=== PATIENT | male | born 1940 | race Caucasian/White ===

== ENCOUNTER 2016-08-15 13:42 | Emergency (ER) | payer MEDICARE ==
[~2016-08-15] VITALS: Ht 182.9 cm; Wt 63.5 kg
[2016-08-15] MEDS ORDERED: IPRATRPIUM/ALBUTEROL 0.5/2.5MG 3 ML NEBU. NEB ONE (14:00)
--- NOTE | 2016-08-15 14:23 | RAD ---
Indication chest pain. 2 AP views of the chest were obtained. No prior imaging is available. There are background changes compatible with emphysema and/or fibrosis. Heart size is normal. There is no gross congestive heart failure. A consolidated pneumonia is not seen. Significant pleural fluid is not present and there is no pneumothorax. IMPRESSION: Probable chronic changes. No acute finding seen
[2016-08-15 14:26] LABS: BASO # 0.1 x10^3/uL (0.0-0.2); BASO % 1 % (0-3); EOS % 1 % (0-3); HEMATOCRIT 45.4 % (36.0-47.0); HEMOGLOBIN 15.4 g/dL (12.0-15.5); LYMPH # 0.8 x10^3/uL (1.0-4.8); LYMPH % 12 % (24-48); MEAN CORPUSCULAR HEMOGLOBIN 30 pg (25-35); MEAN CORPUSCULAR HGB CONC 34 g/dL (31-37); MEAN CORPUSCULAR VOLUME 88 fL (79-100); MONO % 4 % (0-9); NEUT % 82 % (31-73); PLATELET COUNT 194 x10^3/uL (140-400); RED BLOOD COUNT 5.19 x10^6/uL (3.50-5.40); RED CELL DISTRIBUTION WIDTH 14.6 % (11.5-14.5); WHITE BLOOD COUNT 6.6 x10^3/uL (4.0-11.0)
[2016-08-15 14:49] LABS: CALCIUM 9.3 mg/dL (8.5-10.1); CREATININE 0.9 mg/dL (0.7-1.3); GFR 82.5; POTASSIUM 4.3 mmol/L (3.5-5.1)
[2016-08-15] MEDS ORDERED: PROAIR HFA8.5 GM INH (14:49)
[2016-08-15] MEDS ORDERED: PRED50TA PO (14:49)
--- NOTE | 2016-08-15 14:49 | PHYS DOC ---
Past Medical History Past Medical History: COPD Past Surgical History: No Surgical History Alcohol Use: None Adult General Chief Complaint Chief Complaint: SHORTNESS OF BREATH HPI HPI 75-year-old male (patient was inaccurately labeled a female in the medical record. This is wrong. The patient is a male.) Presenting to the emergency department today with shortness of breath. His shortness of breath is been present for approximately 3 weeks. It is worse with exertion and improved with rest. He denies any pain. He denies fevers cough or chills. He has a history of COPD. Location lungs. Duration intermittent. Review of systems is negative for chest pain abdominal pain nausea vomiting diaphoresis. All other review of systems is negative unless otherwise noted in history of present illness. Review of Systems Review of Systems SEE ABOVE. Current Medications Current Medications Current Medications Medications (Trade) Dose Ordered Sig/Gladys Start Time Stop Time Status Last Admin Dose Admin Albuterol/ Ipratropium (Duoneb) 3 ml 1X ONCE 08/15/16 14:00 08/15/16 14:04 DC 08/15/16 14:14 3 ML Allergies Allergies Allergies Coded Allergies Type Severity Reaction Last Updated Verified mold Allergy Unknown 08/15/16 Yes pollen extracts Allergy Unknown 08/15/16 Yes Physical Exam Physical Exam Constitutional: Well developed, well nourished, no acute distress, non-toxic appearance. HENT: Normocephalic, atraumatic, bilateral external ears normal, oropharynx moist, no oral exudates, nose normal. [] Eyes: PERRLA, EOMI, conjunctiva normal, no discharge. Neck: Normal range of motion, no tenderness, supple, no stridor. [] Cardiovascular:Heart rate regular rhythm, no murmur [] Lungs & Thorax: Lungs show bilateral wheezing with prolonged expiratory phase. Abdomen: Bowel sounds normal, soft, no tenderness, no masses, no pulsatile masses. [] Skin: Warm, dry, no erythema, no rash. Back: No tenderness, no CVA tenderness. [] Extremities: No tenderness, no cyanosis, no clubbing, ROM intact, no edema. Neurologic: Alert and oriented X 3, normal motor function, normal sensory function, no focal deficits noted. Psychologic: Affect normal, judgement normal, mood normal. [] Current Patient Data Vital Signs Vital Signs Date Time Temp Pulse Resp B/P (MAP) Pulse Ox O2 Delivery O2 Flow Rate FiO2 08/15/16 14:15 Room Air Lab Values Laboratory Tests Test 08/15/16 14:15 White Blood Count 6.6 x10^3/uL (4.0-11.0) Red Blood Count 5.19 x10^6/uL (3.50-5.40) Hemoglobin 15.4 g/dL (12.0-15.5) Hematocrit 45.4 % (36.0-47.0) Mean Corpuscular Volume 88 fL (79-100) Mean Corpuscular Hemoglobin 30 pg (25-35) Mean Corpuscular Hemoglobin Concent 34 g/dL (31-37) Red Cell Distribution Width 14.6 % (11.5-14.5) H Platelet Count 194 x10^3/uL (140-400) Neutrophils (%) (Auto) 82 % (31-73) H Lymphocytes (%) (Auto) 12 % (24-48) L Monocytes (%) (Auto) 4 % (0-9) Eosinophils (%) (Auto) 1 % (0-3) Basophils (%) (Auto) 1 % (0-3) Neutrophils # (Auto) 5.4 x10^3uL (1.8-7.7) Lymphocytes # (Auto) 0.8 x10^3/uL (1.0-4.8) L Monocytes # (Auto) 0.3 x10^3/uL (0.0-1.1) Eosinophils # (Auto) 0.1 x10^3/uL (0.0-0.7) Basophils # (Auto) 0.1 x10^3/uL (0.0-0.2) Sodium Level 139 mmol/L (136-145) Potassium Level 4.3 mmol/L (3.5-5.1) Chloride Level 102 mmol/L (98-107) Carbon Dioxide Level 28 mmol/L (21-32) Anion Gap 9 (6-14) Blood Urea Nitrogen 7 mg/dL (8-26) L Creatinine 0.9 mg/dL (0.7-1.3) Estimated GFR (Cockcroft-Gault) 82.5 Glucose Level 102 mg/dL (70-99) H Calcium Level 9.3 mg/dL (8.5-10.1) Total Bilirubin 0.8 mg/dL (0.2-1.0) Direct Bilirubin 0.2 mg/dL (0.0-0.2) Aspartate Amino Transferase (AST) 15 U/L (15-37) Alanine Aminotransferase (ALT) 19 U/L (16-63) Alkaline Phosphatase 87 U/L (46-116) Troponin I Quantitative < 0.017 ng/mL (0.000-0.055) TD-Cdn-M-Type Natriuretic Peptide 212 pg/mL (0-124) H Total Protein 7.5 g/dL (6.4-8.2) Albumin 3.9 g/dL (3.4-5.0) Lipase 108 U/L (73-393) Laboratory Tests 08/15/16 14:15 Laboratory Tests 08/15/16 14:15 EKG EKG []EKG shows sinus rhythm with regular rate. Normal intervals. Normal axis. ST segments are congruent. Not suggestive of ACS. Reviewed by myself. Radiology/Procedures Radiology/Procedures Chest x-ray reviewed by myself shows no obvious infiltrate or pneumothorax present. No obvious acute cardiopulmonary process present. Course & Med Decision Making Course & Med Decision Making Pertinent Labs and Imaging studies reviewed. (See chart for details) [] 75-year-old male presenting to the emergency department with shortness of breath. Chest x-ray and EKG unremarkable. Blood work sent. DuoNeb given. On reexamination the patient improved significantly. He was subsequent discharged home for treatment for COPD exacerbation. The patient was then discharged home in stable condition to follow up with their primary care physician over the next 2-3 days. They were to return if their symptoms worsened or if they were concerned for any reason. Xive-ea-ohys discharge instructions and return precautions were given. Patient's questions were answered to their satisfaction. Patient is comfortable plan. Dragon Disclaimer Dragon Disclaimer This electronic medical record was generated, in whole or in part, using a voice recognition dictation system. Departure Departure Impression: Primary Impression: COPD exacerbation Disposition: HOME, SELF-CARE Condition: STABLE Referrals: NO PCP (PCP) JULIETTE SHARMA MD Patient Instructions: Chronic Obstructive Pulmonary Disease Exacerbation Additional Instructions: Thank you for allowing us to participate in your care today. Followup with your primary care physician in 3 days if your symptoms do not improve. If you do not have a primary care provider you can ask for a list of our primary care providers. Return to the emergency department you have any new or concerning findings. This should be evaluated by the primary care physician and any necessary consulting services for continued management within a few days after discharge. Return to emergency room if you have any new or concerning symptoms including but not limited to fever, chills, nausea, vomiting, intractable pain, any new rashes, chest pain, shortness of air, uncontrolled bleeding, difficulty breathing, and/or vision loss. Scripts Albuterol Sulfate (PROAIR HFA INHALER) 8.5 Gm Hfa.aer.ad 1 PUFF INH PRN Q6HRS Y for SHORTNESS OF BREATH, #1 INHALER 0 Refills Prov: YANNICK WING MD 08/15/16 Prednisone (PREDNISONE) 50 Mg Tablet 50 MG PO DAILY, #5 TAB Prov: YANNICK WING MD 08/15/16 YANNICK WING MD August 15, 2016 14:49
[2016-08-15 14:54] LABS: ALBUMIN 3.9 g/dL (3.4-5.0); DIRECT BILIRUBIN 0.2 mg/dL (0.0-0.2); TOTAL BILIRUBIN 0.8 mg/dL (0.2-1.0); TOTAL PROTEIN 7.5 g/dL (6.4-8.2)
[2016-08-15 15:32] VITALS: BP 133/58
--- NOTE | 2016-08-15 15:38 | EKG ---
[facility] [address] [place] [address] Test Date: 2016-08-15 Test Time: 13:57:45 Pat Name: YSABEL WADE Department: Room: Gender: F Director Food [employer] Beverage: : 1940 Requested By: YANNICK WING Order Number: [id number] Reading MD: Measurements Intervals [place] Rate: 77 P: 90 NE: 154 QRS: 56 QRSD: 78 T: 67 QT: 370 QTc: 420 Interpretive Statements SINUS RHYTHM NON SPECIFIC ST DEPRESSION RI6.01 Unconfirmed report No previous ECG available for comparison
== END 2016-08-15 15:33 | disposition home or self-care (01) ==
LOC: EDSEX 13:42 → ER 13:42
DX: J44.1 Chronic obstructive pulmonary disease with (acute) exacerbation (principal); Z88.8 Allergy status to other drugs, medicaments and biological substances
CPT/HCPCS: 36415; 71010; 80048; 80076; 83690; 83880; 84484; 85027; 93005; 94640; 99285; J7620

== ENCOUNTER → 2016-10-08 | Outpatient (CLI) | payer MEDICARE ==
[~2016-10-08] MED LIST: PRED50TA PO; PROAIR HFA8.5 GM INH
--- NOTE | 2016-10-08 10:31 | RAD ---
Indication difficulty breathing. Shortness of breath. Frontal and lateral views of the chest were obtained and are compared to a study 08/15/2016. There are background changes compatible with emphysema and/or fibrosis. There is moderate hyperexpansion. There is a calcified granuloma in the right upper lobe similar to the previous exam. The heart and pulmonary vessels are within normal limits. There is no acute parenchymal infiltrate. No pleural fluid or pneumothorax is seen. There is slight wedging of midthoracic vertebral body segments likely chronic IMPRESSION: Chronic changes. No acute finding seen
== END | disposition home or self-care (01) ==
LOC: RAD 09:56
PROVIDERS: ATTEND Internal Medicine
DX: J44.9 Chronic obstructive pulmonary disease, unspecified (principal)
CPT/HCPCS: 71020

== ENCOUNTER → 2016-11-08 | Outpatient (CLI) | payer MEDICARE ==
--- NOTE | 2016-11-08 14:31 | RAD ---
CT chest without contrast 11/08/2016 at 1312 hours Indication: Shortness of air, smoker Comparison: None available Technique: Multiple axial CT images of the chest were obtained without intravenous contrast. Coronal and sagittal reformats are provided. Findings: The thyroid gland is normal in appearance. Visualized portions of the lower neck are normal. There are no enlarged axillary, mediastinal or hilar lymph nodes. Heart size is normal. Three-vessel coronary vascular calcification are noted. Thoracic aorta is normal in course and caliber. No pericardial effusion. No pleural effusions. There is moderate centrilobular pulmonary emphysema. Lungs are hyperinflated. Mild bronchial wall thickening compatible with bronchitis. Calcified nodule at the right lung apex is compatible with a calcified granuloma. No solid noncalcified pulmonary nodules. No pulmonary infiltrates. No pneumothorax. Visualized portions of the upper abdomen are normal with the exception of atherosclerotic desiccation of the abdominal aorta. There is an age indeterminate compression deformity involving the superior endplate of T9 with approximately 25% loss of height. Degenerative disc disease is noted at T9-T10, T10-T11 and T11-T12. There is diffuse osteopenia. Impression: 1. Findings are compatible with COPD with moderate pulmonary emphysema and findings of bronchitis. No suspicious pulmonary nodules. 2. Age-indeterminate compression deformity of superior endplate of T9 with approximately 25% loss of height. PQRS Compliance Statement: One or more of the following individualized dose reduction techniques were utilized for this examination: 1. Automated exposure control 2. Adjustment of the mA and/or kV according to patient size 3. Use of iterative reconstruction technique
== END | disposition home or self-care (01) ==
LOC: CT 14:10
PROVIDERS: ATTEND Internal Medicine Pulmonary Disease
DX: J44.9 Chronic obstructive pulmonary disease, unspecified (principal); M51.34 Other intervertebral disc degeneration, thoracic region; Z87.891 Personal history of nicotine dependence
CPT/HCPCS: 71250

== ENCOUNTER 2016-11-15 08:46 | Inpatient (IN) | payer MEDICARE ==
[~2016-11-15] VITALS: Ht 182.9 cm; Wt 61.5 kg
[2016-11-15 09:24] LABS: BASO # 0.1 x10^3/uL (0.0-0.2); BASO % 1 % (0-3); EOS % 2 % (0-3); HEMATOCRIT 45.6 % (39.0-53.0); LYMPH # 0.9 x10^3/uL (1.0-4.8); LYMPH % 14 % (24-48); MEAN CORPUSCULAR HEMOGLOBIN 30 pg (25-35); MEAN CORPUSCULAR HGB CONC 35 g/dL (31-37); MEAN CORPUSCULAR VOLUME 86 fL (79-100); MONO % 7 % (0-9); NEUT % 77 % (31-73); PLATELET COUNT 226 x10^3/uL (140-400); RED BLOOD COUNT 5.32 x10^6/uL (4.30-5.70); RED CELL DISTRIBUTION WIDTH 14.7 % (11.5-14.5); WHITE BLOOD COUNT 6.3 x10^3/uL (4.0-11.0)
--- NOTE | 2016-11-15 09:25 | PHYS DOC ---
Past Medical History Past Medical History: COPD Past Surgical History: No Surgical History Alcohol Use: None Drug Use: None Adult General Chief Complaint Chief Complaint: SHORTNESS OF BREATH HPI HPI Patient is a 76 year old male presents to the emergency department with a history of recent diagnosis of COPD. Patient states he has recently had a CT scan although he does not know the results. Patient states he has an appointment this morning but felt he could not make there. He states he has had a cough and congestion. Review of Systems Review of Systems Constitutional: Denies fever or chills [] Eyes: Denies change in visual acuity, redness, or eye pain [] HENT: Denies nasal congestion or sore throat [] Respiratory: cough and SOA. C/o not being able to get enough air in Cardiovascular: No additional information not addressed in HPI [] GI: Denies abdominal pain, nausea, vomiting, bloody stools or diarrhea [] : Denies dysuria or hematuria [] Musculoskeletal: Denies back pain or joint pain [] Integument: Denies rash or skin lesions [] Neurologic: Denies headache, focal weakness or sensory changes [] Endocrine: Denies polyuria or polydipsia [] Allergies Allergies Allergies Coded Allergies Type Severity Reaction Last Updated Verified mold Allergy Unknown 08/15/16 Yes pollen extracts Allergy Unknown 08/15/16 Yes Physical Exam Physical Exam Constitutional: Well developed, well nourished, no acute distress, non-toxic appearance. [] HENT: Normocephalic, atraumatic, bilateral external ears normal, oropharynx moist, no oral exudates, nose normal. [] Eyes: PERRLA, EOMI, conjunctiva normal, no discharge. [] Neck: Normal range of motion, no tenderness, supple, no stridor. [] Cardiovascular:Heart rate regular rhythm, no murmur [] Lungs & Thorax: Bilateral breath sounds clear to auscultation [] Skin: Warm, dry, no erythema, no rash. [] Back: No tenderness Extremities: No tenderness, no cyanosis, no clubbing, ROM intact, no edema. [] Neurologic: Alert and oriented X 3, normal motor function, normal sensory function, no focal deficits noted. [] Psychologic: Affect normal, judgement normal, mood normal. [] Current Patient Data Vital Signs Vital Signs Date Time Temp Pulse Resp B/P (MAP) Pulse Ox O2 Delivery O2 Flow Rate FiO2 11/15/16 09:53 84 19 147/90 (109) 98 Room Air 11/15/16 09:00 97.3 97.3 Lab Values Laboratory Tests Test 11/15/16 09:10 White Blood Count 6.3 x10^3/uL (4.0-11.0) Red Blood Count 5.32 x10^6/uL (4.30-5.70) Hemoglobin 16.0 g/dL (13.0-17.5) Hematocrit 45.6 % (39.0-53.0) Mean Corpuscular Volume 86 fL (79-100) Mean Corpuscular Hemoglobin 30 pg (25-35) Mean Corpuscular Hemoglobin Concent 35 g/dL (31-37) Red Cell Distribution Width 14.7 % (11.5-14.5) H Platelet Count 226 x10^3/uL (140-400) Neutrophils (%) (Auto) 77 % (31-73) H Lymphocytes (%) (Auto) 14 % (24-48) L Monocytes (%) (Auto) 7 % (0-9) Eosinophils (%) (Auto) 2 % (0-3) Basophils (%) (Auto) 1 % (0-3) Neutrophils # (Auto) 4.9 x10^3uL (1.8-7.7) Lymphocytes # (Auto) 0.9 x10^3/uL (1.0-4.8) L Monocytes # (Auto) 0.4 x10^3/uL (0.0-1.1) Eosinophils # (Auto) 0.1 x10^3/uL (0.0-0.7) Basophils # (Auto) 0.1 x10^3/uL (0.0-0.2) Sodium Level 137 mmol/L (136-145) Potassium Level 3.4 mmol/L (3.5-5.1) L Chloride Level 100 mmol/L (98-107) Carbon Dioxide Level 29 mmol/L (21-32) Anion Gap 8 (6-14) Blood Urea Nitrogen 8 mg/dL (8-26) Creatinine 1.0 mg/dL (0.7-1.3) Estimated GFR (Cockcroft-Gault) 72.8 BUN/Creatinine Ratio 8 (6-20) Glucose Level 100 mg/dL (70-99) H Calcium Level 9.1 mg/dL (8.5-10.1) Total Bilirubin 0.8 mg/dL (0.2-1.0) Aspartate Amino Transferase (AST) 20 U/L (15-37) Alanine Aminotransferase (ALT) 25 U/L (16-63) Alkaline Phosphatase 91 U/L (46-116) Total Protein 7.3 g/dL (6.4-8.2) Albumin 3.7 g/dL (3.4-5.0) Albumin/Globulin Ratio 1.0 (1.0-1.7) Laboratory Tests 11/15/16 09:10 Laboratory Tests 11/15/16 09:10 EKG EKG EKG completed at 0 927 with a heart rate of 87 sinus rhythm noted no STEMI noted per Dr. Walton. [] Radiology/Procedures Radiology/Procedures [][facility] [address] [place], [place] [id number] IMAGING REPORT Signed PATIENT: YSABEL WADE ACCOUNT: [id number] : 1940 LOCATION: ER AGE: 76 SEX: M EXAM STATUS: PRE ER ORD. PHYSICIAN: SHAUNA KERR APRN REASON: cough congestion wheezing PROCEDURE: CHEST PA & LATERAL Chest, 2 views, 11/15/2016: History: Cough, congestion Comparison is made to a study from 10/08/2016. The lungs are hyperexpanded. The heart size is normal. There is calcific plaquing of the aorta. A calcified granuloma is present in the right upper lobe. There are a few scattered parenchymal scars. No acute infiltrates are seen. There is no evidence of pleural fluid. The bony structures are demineralized. There are unchanged vertebral compression deformities in the midthoracic region. IMPRESSION: 1. Emphysema with parenchymal scarring. 2. No acute cardiopulmonary abnormality is detected. DICTATED and SIGNED BY: NEREIDA CAN MD DATE: 11/15/16 0931 CC: HSAUNA KERR APRN; CHRISTIAN SANTO MD ~ Course & Med Decision Making Course & Med Decision Making Pertinent Labs and Imaging studies reviewed. (See chart for details) Spoke with Dr Cedeño at [phone] in regards to patient he agrees with consult for patient. Spoke with Dr Santo in regards to admission for this patient. He agrees with admission, orders have been placed in the computer. [] Dragon Disclaimer Dragon Disclaimer This electronic medical record was generated, in whole or in part, using a voice recognition dictation system. Departure Departure Impression: Primary Impression: COPD exacerbation Disposition: ADMITTED INPATIENT Admitting Physician: Christian Santo Condition: STABLE Referrals: CHRISTIAN SANTO MD (PCP) SHAUNA KERR CLINICAL COUNSELOR Nov 15, 2016 09:25
[2016-11-15 09:32] LABS: CALCIUM 9.1 mg/dL (8.5-10.1); GFR 72.8; POTASSIUM 3.4 mmol/L (3.5-5.1)
--- NOTE | 2016-11-15 09:35 | RAD ---
Chest, 2 views, 11/15/2016: History: Cough, congestion Comparison is made to a study from 10/08/2016. The lungs are hyperexpanded. The heart size is normal. There is calcific plaquing of the aorta. A calcified granuloma is present in the right upper lobe. There are a few scattered parenchymal scars. No acute infiltrates are seen. There is no evidence of pleural fluid. The bony structures are demineralized. There are unchanged vertebral compression deformities in the midthoracic region. IMPRESSION: 1. Emphysema with parenchymal scarring. 2. No acute cardiopulmonary abnormality is detected.
[2016-11-15 09:39] LABS: ALBUMIN 3.7 g/dL (3.4-5.0); TOTAL BILIRUBIN 0.8 mg/dL (0.2-1.0); TOTAL PROTEIN 7.3 g/dL (6.4-8.2)
[2016-11-15] MEDS ORDERED: BUDESONIDE 0.5 MG/2 ML NEBU. NEB ONE (11:00)
[2016-11-15] MEDS ORDERED: ENOXAPARIN 40 MG/0.4 ML SYRINGE. SQ SCH ×2 (11:00→12:30)
[2016-11-15] MEDS ORDERED: IPRATRPIUM/ALBUTEROL 0.5/2.5MG 3 ML NEBU. NEB ONE (11:00)
[2016-11-15] MEDS ORDERED: methylPREDNISolone SOD SUCC PF 125 MG/2 ML VIAL. IV ONE (11:00)
--- NOTE | 2016-11-15 11:04 | EKG ---
[facility] [address] [place] [address] Test Date: 2016-11-15 Test Time: 09:27:06 Pat Name: YSABEL WADE Department: Room: [facility] Gender: M Advertising Coordinator: : 1940 Requested By: SHAUNA KERR Order Number: [id number] Reading MD: Pro Bey Measurements Intervals [place] Rate: 87 P: 0 [place]: 108 QRS: 48 QRSD: 78 T: 59 QT: 354 QTc: 432 Interpretive Statements SINUS RHYTHM Electronically Signed On 11-19-2016 7:17:49 CDT by Pro Bey
--- NOTE | 2016-11-15 11:04 | ACF ---
Admit Criteria Forms Admit Criteria Forms Admit Criteria Forms COPD Clinical Indications for Admission to Inpatient Care ([place]/check or initial the applicable condition/criteria) Admission is indicated for ANY ONE of the following (1)(2)(3): [ ]I. Acute exacerbation by high-risk comorbidity(e.g., pneumonia, dysrhythmia, heart failure, pleural effusion, pneumothorax) or severe underlying COPD (eg, baseline FEV1 less than 50% predicted) [ X]II. Inpatient admission required[A] rather than observation care (see Chronic Obstructive Pulmonary Disease: Observation Care) because of ANY ONE of the following: [X ]a) New or pre-existing signs or symptoms of COPD (eg, dyspnea or Tachypnea at rest or with minimal activity) that persist despite outpatient and observation care treatment [ ]b) New-onset hypoxemia (room air SaO2 less than 90%, PO2 less than 60 mm Hg (8.0 kPa)) that persists despite outpatient and observation care treatment [ ]c) Worsening of pre-existing hypoxemia (eg, new or increased requirement for supplemental oxygen to maintain oxygenation at baseline level) that persists despite outpatient and observation care treatment, with oxygen treatment needs performable only in acute inpatient setting [ ]d) Hypercarbia (PCO2 greater than 40 mm Hg (5.3 kPa))-induced respiratory acidosis (pH less than 7.35) that persists despite outpatient and observation care treatment [ ]e) Supplemental oxygen or respiratory treatments for over 24 hours that are performable only in acute inpatient setting [ ]f) Chest tube placement with active evacuation (e.g., suction, drainage) (6) [ ]g) Other condition, treatment or monitoring requiring inpatient admission [ ]III. Planned invasive surgical or diagnostic procedures requiring acute- care hospitalization [ ]IV. Acute respiratory failure (e.g., uncompensated hypercarbia, severe hypoxemia) [ ]V. Severe comorbid condition (e.g., severe steroid myopathy, acute vertebral fracture) that has acutely worsened pulmonary function [ ]. Altered mental status that is severe or persistent Extended stay beyond goal length of stay may be needed for (29)(30)(31)(32)(33) : [ ]a ) Respiratory Failure. [ ]b) Severe or persisting hypoxemia or hypercarbia [ ]c) Severe or persistent dyspnea [ ]d) Clinically significant Comorbidities (e.g. chronic heart failure, atrial fibrillation with rapid response, pneumonia)(36) [ ]e) Malnutrition (33) The original [facility] content created by [facility] [employer] has been revised. The portions of the content which have been revised are identified through the use of italic text, and [facility] has neither reviewed nor approved the modified material. All other unmodified content is copyright [facility] [employer]. Please see references footnoted in the original [facility] edition 2014 AFUA BERNARD Nov 15, 2016 11:04
[2016-11-15 11:40] VITALS: BP 148/92
[2016-11-15 11:41] VITALS: BP 148/92
[2016-11-15] MEDS ORDERED: GUAI600T47 PO (12:30)
[2016-11-15] MEDS ORDERED: ALBU2.5V5 NEB (12:31)
[2016-11-15] MEDS ORDERED: IPRA0.2S5 NEB (12:31)
--- NOTE | 2016-11-15 12:31 | PDOC ---
Provider Note Provider Note [id number] dyspnea ae of copd acute bronchitis see orders. BECKY CHOUDHURY MD Nov 15, 2016 12:31
[2016-11-15] MEDS ORDERED: ENOXAPARIN 30 MG/0.3 ML SYRINGE. SQ SCH (13:00)
--- NOTE | 2016-11-15 13:01 | CONS ---
DATE OF CONSULTATION: 11/15/2016 DATE OF SERVICE: 11/15/2016 REASON FOR CONSULTATION: I was asked to see this 76-year-old gentleman for shortness of breath, cough, COPD, wheezing, chest tightness. HISTORY OF PRESENT ILLNESS: He does have history of [id number] smoking, stopped smoking about 8 months ago. He has had shortness of breath with exertion and daily cough. Recently he was diagnosed with COPD. For the past few days, he has had increased cough with cucfma-ze-ofqhl sputum production. He has had chest tightness. He has had nasal congestion and gastroesophageal reflux symptoms. He denies fever or chills. He was seen by Dr. Cedeño in the office and apparently a CT was done, which the patient was told that the results were within normal limits. ALLERGIES: mold. MEDICATIONS: Currently he is on Solu-Medrol 60 mg IV every 8 hours and Levaquin 500 mg daily. PAST MEDICAL HISTORY: COPD, hypertension. SOCIAL HISTORY: History of [id number]-teuw-etmk smoking, stopped smoking 8 months ago, does not drink alcohol. He is a retired mechanical specialist. FAMILY HISTORY: Father had emphysema. REVIEW OF SYSTEMS: As mentioned as above, other systems otherwise negative. PHYSICAL EXAMINATION: GENERAL: This is a well-nourished gentleman. VITAL SIGNS: O2 saturation is 98%, respiratory rate 24, heart rate 84, blood pressure 148/92, temperature 97.7. HEENT: Normocephalic, atraumatic. Pupils equal, round, reactive to light. Throat is clear. He is edentulous. Nose, there is inflamed mucosa. NECK: There is no JVD, lymphadenopathy or thyromegaly. CARDIOVASCULAR: Distant heart sounds, regular rate and rhythm. PMI is not displaced. CHEST: He has increased AP diameter. LUNGS: There is end expiratory wheezing. Percussion is within normal limit. ABDOMEN: Soft. Bowel sounds are good. There is no mass. EXTREMITIES: There is no edema. LYMPHATICS: There is no lymphadenopathy. NEUROLOGIC: Alert and oriented. SKIN: Chronic changes. LABORATORY DATA: I reviewed the following lab data: Chest x-ray shows COPD changes. CT of the chest also done on 11/08/2016 does show COPD changes with emphysema, age indeterminate, compression deformity of superior endplate of T9 with approximately 25% loss of height. WBC 6.3, hemoglobin 16, platelet 226. Sodium 134, potassium 3.4, chloride 100, CO2 of 29, glucose 100, BUN 8 and creatinine 1. IMPRESSION: 1. Dyspnea, multifactorial in etiology. 2. Acute exacerbation of chronic obstructive pulmonary disease. 3. Acute bronchitis. 4. Hypertension. 5. Ex-smoker. 6. Gastroesophageal reflux disease. 7. Allergic rhinitis. PLAN AND RECOMMENDATIONS: 1. Titrate FiO2 to keep O2 saturation 92%. 2. Start bronchodilator q.i.d. p.r.n. shortness of breath. 3. Pulmicort b.i.d. 4. Continue Solu-Medrol. 5. Continue Levaquin. 6. Lovenox for DVT prophylaxis. 7. Protonix for gastroesophageal reflux disease. 8. The findings and recommendations were discussed with the patient and his caregiver. I have answered all of their questions. They understood and agreed to proceed with the plan. Thank you very much for allowing me to participate in care of this very nice gentleman. BECKY CHOUDHURY M.D. DR: Eduardo JOB#: [id number] / [id number] PAMELA
[2016-11-15 14:40] VITALS: BP 112/69
[2016-11-15] MEDS: methylPREDNISolone SOD SUCC PF 125 MG/2 ML VIAL. IV SCH ×2 (15:01→22:31)
[2016-11-15] MEDS ORDERED: MAGNESIUM HYDROXIDE 2,400 MG/30 ML ORAL.SUSP. PO PRN (15:45)
[2016-11-15] MEDS ORDERED: ACETAMINOPHEN 325 MG TABLET. PO PRN (15:45)
[2016-11-15] MEDS: IPRATRPIUM/ALBUTEROL 0.5/2.5MG 3 ML NEBU. NEB SCH ×2 (15:53→20:15)
--- NOTE | 2016-11-15 15:54 | PDOC ---
Provider Note Provider Note history and physical dictated # [id number] JULIETTE SHARMA MD Nov 15, 2016 15:54
[2016-11-15] MEDS ORDERED: POTASSIUM CHLORIDE 20 MEQ TABLET.ER. PO ONE (16:00)
[2016-11-15] MEDS ORDERED: ALBUTEROL SULFATE 2.5 MG/3 ML NEBU. NEB PRN (16:00)
--- NOTE | 2016-11-15 16:29 | HP ---
ADMIT DATE: 11/15/2016 LOCATION: He is in room 676. HISTORY OF PRESENT ILLNESS: The patient is a 76-year-old white male with history of chronic obstructive pulmonary disease and also 1 week history of increasing dyspnea on exertion and coughing up some green sputum. Denied any fever. He quit smoking in March 2016. He sought help at the [facility] Emergency Room where a chest x-ray showed chronic obstructive pulmonary disease. ALLERGIES AND INTOLERANCES: MOLD AND POLLEN EXTRACTS. MEDICATIONS: Prior to admission include albuterol nebulizer treatments q.i.d. p.r.n., amlodipine 5 mg everyday, Breo Ellipta 100/25 mcg 1 puff every day, but I do not think he cannot afford that ____ ProAir inhaler, which he uses p.r.n. He uses the ____ nebulizer treatments q.i.d. p.r.n. PAST MEDICAL HISTORY: Significant for chronic obstructive pulmonary disease, hypertension. Not had any surgery. FAMILY HISTORY: Noncontributory. SOCIAL HISTORY: He is has a [id number] smoking history, stopped on 03/2016. Does not drink alcohol, is a retired lawn mower mechanic. FAMILY HISTORY: Father had emphysema. REVIEW OF SYSTEMS: GENERAL: Denies any fever, chills or sweats. CARDIOVASCULAR: He denies any chest pain. PULMONARY: Shortness of breath, coughing and coughing green sputum. GASTROINTESTINAL: No constipation. SKIN: No rashes. NEUROLOGIC: No focal weakness. ENDOCRINE: No diabetes mellitus. SKIN: No rashes. The rest of systems reviewed are negative except as stated in the history of present illness. PHYSICAL EXAMINATION: VITAL SIGNS: Temperature is 98.8 degrees, apical pulse is 99, respiratory rate 22, blood pressure is 112/69, oxygen saturation 94% on room air. HEENT: Eyes: Gaze is conjugate. Extraocular muscles are intact. Mouth: Tongue is midline. NECK: There is no cervical lymphadenopathy or thyroid enlargement. HEART: Reveals an S1, S2. There is no S3 or murmur. LUNGS: Clear with decreased breath sounds bilaterally. ABDOMEN: Soft, nontender. EXTREMITIES: Lower extremities without edema. SKIN: No rashes. NEUROLOGIC: Revealed no focal weakness of the extremities or facial asymmetry. LABORATORY DATA: Review of his laboratory test, sodium is 137, potassium 3.4, chloride 100, total CO2 was 29, BUN 8, creatinine 1.0, blood sugar 100. Liver function tests normal, albumin 3.7. White count 6.3, hemoglobin 16, platelet count 226,000, 77 polys and 14 lymphocytes. He had a chest x-ray done which showed emphysema with no acute abnormality. He had an electrocardiogram done, EKG showed normal sinus rhythm with an intraventricular conduction defect, otherwise was unremarkable. ASSESSMENT: 1. Chronic obstructive pulmonary disease with acute exacerbation. 2. Acute bronchitis. 3. Hypokalemia. 4. Hypertension. PLAN: At this time is to consult Dr. Ahuja for Pulmonary. We will check a blood gas. We will check a sputum for Gram stain and culture, start him on oral Levaquin and IV Solu-Medrol and also on DuoNeb nebulizer treatments q.i.d. and every 4 hours p.r.n. and budesonide treatments b.i.d. In addition, we will give him some potassium chloride today, renew his amlodipine, but hold if systolic blood pressure is less than 110. Recheck his labs tomorrow. Lovenox for deep vein thrombosis prophylaxis have been ordered. He is also on Protonix. JULIETTE SHARMA MD DR: NOLA/vu JOB#: [id number] / [id number]
[2016-11-15 17:18] LABS: PH ABG 7.48 (7.35-7.45)
[2016-11-15 17:19] LABS: ALLEN TEST POSITIVE; FIO2 ABG 21; HCO3 ABG 22 mmol/L (21-28); PCO2 ABG 30 mmHg (35-46); PO2 ABG 72 mmHg (65-108); SAT O2 ABG 95 % (92-99)
[2016-11-15 19:25] VITALS: BP 118/80
[2016-11-15] MEDS: BUDESONIDE 0.5 MG/2 ML NEBU. NEB SCH (20:15)
[2016-11-16 03:30] VITALS: BP 113/74
[2016-11-16 06:17] LABS: BASO % 0 % (0-3); EOS % 0 % (0-3); HEMATOCRIT 40.8 % (39.0-53.0); HEMOGLOBIN 14.2 g/dL (13.0-17.5); LYMPH # 0.6 x10^3/uL (1.0-4.8); LYMPH % 7 % (24-48); MEAN CORPUSCULAR HEMOGLOBIN 30 pg (25-35); MEAN CORPUSCULAR HGB CONC 35 g/dL (31-37); MEAN CORPUSCULAR VOLUME 86 fL (79-100); MONO % 2 % (0-9); NEUT % 91 % (31-73); PLATELET COUNT 227 x10^3/uL (140-400); RED BLOOD COUNT 4.76 x10^6/uL (4.30-5.70); RED CELL DISTRIBUTION WIDTH 14.9 % (11.5-14.5); WHITE BLOOD COUNT 9.5 x10^3/uL (4.0-11.0)
[2016-11-16 06:38] LABS: CALCIUM 8.8 mg/dL (8.5-10.1); CREATININE 0.9 mg/dL (0.7-1.3); GFR 82.3
[2016-11-16] MEDS: methylPREDNISolone SOD SUCC PF 125 MG/2 ML VIAL. IV SCH ×3 (06:45→21:37)
[2016-11-16] MEDS: IPRATRPIUM/ALBUTEROL 0.5/2.5MG 3 ML NEBU. NEB SCH (07:17)
[2016-11-16] MEDS: BUDESONIDE 0.5 MG/2 ML NEBU. NEB SCH ×2 (07:18→19:37)
[2016-11-16 07:27] VITALS: BP 125/82
[2016-11-16 07:32] LABS: PLT ESTIMATE ADEQUATE (ADEQUATE)
[2016-11-16] MEDS: PANTOPRAZOLE 40 MG TABLET.DR. PO SCH (08:54)
[2016-11-16 10:46] VITALS: BP 110/69
--- NOTE | 2016-11-16 10:54 | PDOC ---
PROGRESS NOTES Subjective Subjective coughing thick sputum. feels the same. lab reviewed. Objective Objective Vital Signs Date Time Temp Pulse Resp B/P (MAP) Pulse Ox O2 Delivery O2 Flow Rate FiO2 11/16/16 10:46 98.6 99 26 110/69 (83) 92 Room Air 98.6 Intake and Output 11/16/16 07:00 Intake Total 1220 ml Balance 1220 ml Intake Oral 1220 ml # Voids 3 Physical Exam Abdomen: Soft Heart: Regular rate, Normal S1, Normal S2 Extremities: No edema General: Alert HEENT: Atraumatic Lungs: Other (decreased breath sounds bilaterally) Neuro: Normal speech Psych/Mental Status: Mental status NL Skin: No rashes Assessment Assessment Problems1. Chronic obstructive pulmonary disease with acute exacerbation. 2. Acute bronchitis. 3. Hypokalemia.resolved 4. Hypertension. Medical Problems: (1) COPD exacerbation Status: Acute Plan Plan of Care levaquin iv solumedrol duoneb nebulizer and budesonide nebulizer rx start mucinex PT and OT lovenox for dvt prophylaxis Comment Review of Relevant I have reviewed the following items francisco (where applicable) has been applied. Labs Laboratory Tests Test 11/15/16 09:10 11/15/16 17:13 11/16/16 05:37 White Blood Count 6.3 x10^3/uL (4.0-11.0) 9.5 x10^3/uL (4.0-11.0) Red Blood Count 5.32 x10^6/uL (4.30-5.70) 4.76 x10^6/uL (4.30-5.70) Hemoglobin 16.0 g/dL (13.0-17.5) 14.2 g/dL (13.0-17.5) Hematocrit 45.6 % (39.0-53.0) 40.8 % (39.0-53.0) Mean Corpuscular Volume 86 fL (79-100) 86 fL (79-100) Mean Corpuscular Hemoglobin 30 pg (25-35) 30 pg (25-35) Mean Corpuscular Hemoglobin Concent 35 g/dL (31-37) 35 g/dL (31-37) Red Cell Distribution Width 14.7 % (11.5-14.5) 14.9 % (11.5-14.5) Platelet Count 226 x10^3/uL (140-400) 227 x10^3/uL (140-400) Neutrophils (%) (Auto) 77 % (31-73) 91 % (31-73) Lymphocytes (%) (Auto) 14 % (24-48) 7 % (24-48) Monocytes (%) (Auto) 7 % (0-9) 2 % (0-9) Eosinophils (%) (Auto) 2 % (0-3) 0 % (0-3) Basophils (%) (Auto) 1 % (0-3) 0 % (0-3) Neutrophils # (Auto) 4.9 x10^3uL (1.8-7.7) 8.7 x10^3uL (1.8-7.7) Lymphocytes # (Auto) 0.9 x10^3/uL (1.0-4.8) 0.6 x10^3/uL (1.0-4.8) Monocytes # (Auto) 0.4 x10^3/uL (0.0-1.1) 0.2 x10^3/uL (0.0-1.1) Eosinophils # (Auto) 0.1 x10^3/uL (0.0-0.7) 0.0 x10^3/uL (0.0-0.7) Basophils # (Auto) 0.1 x10^3/uL (0.0-0.2) 0.0 x10^3/uL (0.0-0.2) Sodium Level 137 mmol/L (136-145) 138 mmol/L (136-145) Potassium Level 3.4 mmol/L (3.5-5.1) 4.0 mmol/L (3.5-5.1) Chloride Level 100 mmol/L (98-107) 103 mmol/L (98-107) Carbon Dioxide Level 29 mmol/L (21-32) 27 mmol/L (21-32) Anion Gap 8 (6-14) 8 (6-14) Blood Urea Nitrogen 8 mg/dL (8-26) 12 mg/dL (8-26) Creatinine 1.0 mg/dL (0.7-1.3) 0.9 mg/dL (0.7-1.3) Estimated GFR (Cockcroft-Gault) 72.8 82.3 BUN/Creatinine Ratio 8 (6-20) Glucose Level 100 mg/dL (70-99) 123 mg/dL (70-99) Calcium Level 9.1 mg/dL (8.5-10.1) 8.8 mg/dL (8.5-10.1) Total Bilirubin 0.8 mg/dL (0.2-1.0) Aspartate Amino Transf (AST/SGOT) 20 U/L (15-37) Alanine Aminotransferase (ALT/SGPT) 25 U/L (16-63) Alkaline Phosphatase 91 U/L (46-116) Total Protein 7.3 g/dL (6.4-8.2) Albumin 3.7 g/dL (3.4-5.0) Albumin/Globulin Ratio 1.0 (1.0-1.7) O2 Saturation 95 % (92-99) Arterial Blood pH 7.48 (7.35-7.45) Arterial Blood pCO2 at Patient Temp 30 mmHg (35-46) Arterial Blood pO2 at Patient Temp 72 mmHg (65-108) Arterial Blood HCO3 22 mmol/L (21-28) Arterial Blood Base Excess -1 mmol/L (-3-3) FiO2 21 Segmented Neutrophils % 91 % (35-66) Band Neutrophils % 2 % (0-9) Lymphocytes % 5 % (24-48) Monocytes % 2 % (0-10) Platelet Estimate Adequate (ADEQUATE) Laboratory Tests Test 11/15/16 17:13 11/16/16 05:37 O2 Saturation 95 % (92-99) Arterial Blood pH 7.48 (7.35-7.45) Arterial Blood pCO2 at Patient Temp 30 mmHg (35-46) Arterial Blood pO2 at Patient Temp 72 mmHg (65-108) Arterial Blood HCO3 22 mmol/L (21-28) Arterial Blood Base Excess -1 mmol/L (-3-3) FiO2 21 White Blood Count 9.5 x10^3/uL (4.0-11.0) Red Blood Count 4.76 x10^6/uL (4.30-5.70) Hemoglobin 14.2 g/dL (13.0-17.5) Hematocrit 40.8 % (39.0-53.0) Mean Corpuscular Volume 86 fL (79-100) Mean Corpuscular Hemoglobin 30 pg (25-35) Mean Corpuscular Hemoglobin Concent 35 g/dL (31-37) Red Cell Distribution Width 14.9 % (11.5-14.5) Platelet Count 227 x10^3/uL (140-400) Neutrophils (%) (Auto) 91 % (31-73) Lymphocytes (%) (Auto) 7 % (24-48) Monocytes (%) (Auto) 2 % (0-9) Eosinophils (%) (Auto) 0 % (0-3) Basophils (%) (Auto) 0 % (0-3) Neutrophils # (Auto) 8.7 x10^3uL (1.8-7.7) Lymphocytes # (Auto) 0.6 x10^3/uL (1.0-4.8) Monocytes # (Auto) 0.2 x10^3/uL (0.0-1.1) Eosinophils # (Auto) 0.0 x10^3/uL (0.0-0.7) Basophils # (Auto) 0.0 x10^3/uL (0.0-0.2) Segmented Neutrophils % 91 % (35-66) Band Neutrophils % 2 % (0-9) Lymphocytes % 5 % (24-48) Monocytes % 2 % (0-10) Platelet Estimate Adequate (ADEQUATE) Sodium Level 138 mmol/L (136-145) Potassium Level 4.0 mmol/L (3.5-5.1) Chloride Level 103 mmol/L (98-107) Carbon Dioxide Level 27 mmol/L (21-32) Anion Gap 8 (6-14) Blood Urea Nitrogen 12 mg/dL (8-26) Creatinine 0.9 mg/dL (0.7-1.3) Estimated GFR (Cockcroft-Gault) 82.3 Glucose Level 123 mg/dL (70-99) Calcium Level 8.8 mg/dL (8.5-10.1) Microbiology 11/15/16 Gram Stain - Final, Complete Medications Current Medications Methylprednisolone Sodium Succinate (SOLU-Medrol 125MG VIAL) 60 mg Q8HRS IV Last administered on 11/16/16 06:45; Start 11/15/16 at 14:00 Albuterol/ Ipratropium (Duoneb) 3 ml 1X ONCE NEB Last administered on 12:31; Start 11/15/16 at 11:00; Stop 11/15/16 at 11:01; Status DC Budesonide (Pulmicort) 0.5 mg 1X ONCE NEB Last administered on 11/15/16 12:28 ; Start 11/15/16 at 11:00; Stop 11/15/16 at 11:01; Status DC Levofloxacin (Levaquin) 500 mg DAILY PO Last administered on 11/16/16 08:54; Start 11/16/16 at 09:00 Enoxaparin Sodium (Lovenox Per Pharmacy Prophylaxis Dosing) 1 each PRN DAILY PRN MC SEE COMMENTS; Start 11/15/16 at 10:30; Stop 11/15/16 at 12:31; Status DC Levofloxacin (Levaquin) 500 mg 1X ONCE PO Last administered on 11/15/16 11:03 ; Start 11/15/16 at 11:00; Stop 11/15/16 at 11:01; Status DC Methylprednisolone Sodium Succinate (SOLU-Medrol 125MG VIAL) 60 mg 1X ONCE IV Last administered on 11/15/16 11:03; Start 11/15/16 at 11:00; Stop 11/15/16 at 11:01; Status DC Enoxaparin Sodium (Lovenox 40mg Syringe) 40 mg Q24H SQ ; Start 11/15/16 at 11:00 ; Stop 11/15/16 at 12:28; Status DC Albuterol/ Ipratropium (Duoneb) 3 ml RTQID NEB Last administered on 11/16/16 07:17; Start 11/15/16 at 16:00 Budesonide (Pulmicort) 0.5 mg RTBID NEB Last administered on 11/16/16 07:18; Start 11/15/16 at 20:00 Enoxaparin Sodium (Lovenox 40mg Syringe) 30 mg Q24H SQ ; Start 11/15/16 at 12:30 ; Status UNV Pantoprazole Sodium (Protonix) 40 mg DAILYAC PO Last administered on 11/16/16 08:54; Start 11/16/16 at 07:30 Enoxaparin Sodium (Lovenox 30mg Syringe) 30 mg Q24H SQ Last administered on 15:06; Start 11/15/16 at 13:00; Stop 11/15/16 at 15:47; Status DC Enoxaparin Sodium (Lovenox 40mg Syringe) 40 mg Q24H SQ ; Start 11/16/16 at 15:00 Acetaminophen (Tylenol) 650 mg PRN Q6HRS PRN PO MILD PAIN / TEMP; Start at 15:45 Magnesium Hydroxide (Milk Of Magnesia) 2,400 mg PRN DAILY PRN PO CONSTIPATION; Start 11/15/16 at 15:45 Potassium Chloride (Klor-Con) 20 meq 1X ONCE PO Last administered on t 17:56; Start 11/15/16 at 16:00; Stop 11/15/16 at 16:01; Status DC Albuterol Sulfate (Ventolin Neb Soln) 2.5 mg PRN Q4HRS PRN NEB SHORTNESS OF BREATH; Start 11/15/16 at 16:00 Active Scripts Active Proair Hfa Inhaler (Albuterol Sulfate) 8.5 Gm Hfa.aer.ad 1 Puff INH PRN Q6HRS PRN Reported Albuterol Sulfate Neb Soln (Albuterol Sulfate) 2.5 Mg/3 Ml Vial.neb 1 Vial NEB PRN QID PRN Ipratropium [place] 0.2 Mg/1 Ml Solution 1 Vial NEB PRN QID PRN Mucinex (Guaifenesin) 600 Mg Tablet.er 1 Tab PO BID Vitals/I & O Vital Sign - Last 24 Hours 11/15/16 11/15/16 11/15/16 11/15/16 11:00 11:40 11:41 12:08 Temp 97.7 97.7 97.7 97.7 Pulse 86 86 84 Resp 20 24 24 B/P (MAP) 160/88 (112) 148/92 (110) 148/92 (110) Pulse Ox 99 99 99 O2 Delivery Room Air Room Air Room Air Room Air 11/15/16 11/15/16 11/15/16 11/15/16 12:35 14:40 15:58 19:25 Temp 98.8 98.4 98.8 98.4 Pulse 99 110 Resp 22 28 B/P (MAP) 112/69 (83) 118/80 (93) Pulse Ox 96 94 94 94 O2 Delivery Room Air Room Air Room Air Room Air 11/15/16 11/15/16 11/16/16 11/16/16 20:00 20:16 03:30 07:19 Temp 98.1 98.1 Pulse 87 Resp 29 B/P (MAP) 113/74 (87) Pulse Ox 94 92 96 O2 Delivery Room Air Room Air Room Air Room Air 11/16/16 11/16/16 11/16/16 07:27 08:00 10:46 Temp 97.6 98.6 97.6 98.6 Pulse 81 99 Resp 24 26 B/P (MAP) 125/82 (96) 110/69 (83) Pulse Ox 98 92 O2 Delivery Room Air Room Air Room Air Intake and Output 11/15/16 11/15/16 11/16/16 15:00 23:00 07:00 Intake Total 600 ml 620 ml Balance 600 ml 620 ml JULIETTE SHARMA MD Nov 16, 2016 10:54
--- NOTE | 2016-11-16 12:27 | PDOC ---
PULMONARY PROGRESS NOTES Subjective has more sob, cough sputum, no pain, makes silver solution for nasal congestion Vitals Vital Signs Date Time Temp Pulse Resp B/P (MAP) Pulse Ox O2 Delivery O2 Flow Rate FiO2 11/16/16 10:46 98.6 99 26 110/69 (83) 92 Room Air 98.6 ROS: No Chest Pain, No Abdominal Pain General: Alert HEENT: Other (nc at perrl nose inflamed mucosa. throat clear) Lungs: Wheezing Cardiovascular: S1, S2 Abdomen: Soft, Non-tender Neuro Exam: Alert Extremities: No Edema Skin: Warm Labs Laboratory Tests Test 11/15/16 09:10 11/15/16 17:13 11/16/16 05:37 White Blood Count 6.3 x10^3/uL (4.0-11.0) 9.5 x10^3/uL (4.0-11.0) Red Blood Count 5.32 x10^6/uL (4.30-5.70) 4.76 x10^6/uL (4.30-5.70) Hemoglobin 16.0 g/dL (13.0-17.5) 14.2 g/dL (13.0-17.5) Hematocrit 45.6 % (39.0-53.0) 40.8 % (39.0-53.0) Mean Corpuscular Volume 86 fL (79-100) 86 fL (79-100) Mean Corpuscular Hemoglobin 30 pg (25-35) 30 pg (25-35) Mean Corpuscular Hemoglobin Concent 35 g/dL (31-37) 35 g/dL (31-37) Red Cell Distribution Width 14.7 % (11.5-14.5) 14.9 % (11.5-14.5) Platelet Count 226 x10^3/uL (140-400) 227 x10^3/uL (140-400) Neutrophils (%) (Auto) 77 % (31-73) 91 % (31-73) Lymphocytes (%) (Auto) 14 % (24-48) 7 % (24-48) Monocytes (%) (Auto) 7 % (0-9) 2 % (0-9) Eosinophils (%) (Auto) 2 % (0-3) 0 % (0-3) Basophils (%) (Auto) 1 % (0-3) 0 % (0-3) Neutrophils # (Auto) 4.9 x10^3uL (1.8-7.7) 8.7 x10^3uL (1.8-7.7) Lymphocytes # (Auto) 0.9 x10^3/uL (1.0-4.8) 0.6 x10^3/uL (1.0-4.8) Monocytes # (Auto) 0.4 x10^3/uL (0.0-1.1) 0.2 x10^3/uL (0.0-1.1) Eosinophils # (Auto) 0.1 x10^3/uL (0.0-0.7) 0.0 x10^3/uL (0.0-0.7) Basophils # (Auto) 0.1 x10^3/uL (0.0-0.2) 0.0 x10^3/uL (0.0-0.2) Sodium Level 137 mmol/L (136-145) 138 mmol/L (136-145) Potassium Level 3.4 mmol/L (3.5-5.1) 4.0 mmol/L (3.5-5.1) Chloride Level 100 mmol/L (98-107) 103 mmol/L (98-107) Carbon Dioxide Level 29 mmol/L (21-32) 27 mmol/L (21-32) Anion Gap 8 (6-14) 8 (6-14) Blood Urea Nitrogen 8 mg/dL (8-26) 12 mg/dL (8-26) Creatinine 1.0 mg/dL (0.7-1.3) 0.9 mg/dL (0.7-1.3) Estimated GFR (Cockcroft-Gault) 72.8 82.3 BUN/Creatinine Ratio 8 (6-20) Glucose Level 100 mg/dL (70-99) 123 mg/dL (70-99) Calcium Level 9.1 mg/dL (8.5-10.1) 8.8 mg/dL (8.5-10.1) Total Bilirubin 0.8 mg/dL (0.2-1.0) Aspartate Amino Transf (AST/SGOT) 20 U/L (15-37) Alanine Aminotransferase (ALT/SGPT) 25 U/L (16-63) Alkaline Phosphatase 91 U/L (46-116) Total Protein 7.3 g/dL (6.4-8.2) Albumin 3.7 g/dL (3.4-5.0) Albumin/Globulin Ratio 1.0 (1.0-1.7) O2 Saturation 95 % (92-99) Arterial Blood pH 7.48 (7.35-7.45) Arterial Blood pCO2 at Patient Temp 30 mmHg (35-46) Arterial Blood pO2 at Patient Temp 72 mmHg (65-108) Arterial Blood HCO3 22 mmol/L (21-28) Arterial Blood Base Excess -1 mmol/L (-3-3) FiO2 21 Segmented Neutrophils % 91 % (35-66) Band Neutrophils % 2 % (0-9) Lymphocytes % 5 % (24-48) Monocytes % 2 % (0-10) Platelet Estimate Adequate (ADEQUATE) Laboratory Tests Test 11/15/16 17:13 11/16/16 05:37 O2 Saturation 95 % (92-99) Arterial Blood pH 7.48 (7.35-7.45) Arterial Blood pCO2 at Patient Temp 30 mmHg (35-46) Arterial Blood pO2 at Patient Temp 72 mmHg (65-108) Arterial Blood HCO3 22 mmol/L (21-28) Arterial Blood Base Excess -1 mmol/L (-3-3) FiO2 21 White Blood Count 9.5 x10^3/uL (4.0-11.0) Red Blood Count 4.76 x10^6/uL (4.30-5.70) Hemoglobin 14.2 g/dL (13.0-17.5) Hematocrit 40.8 % (39.0-53.0) Mean Corpuscular Volume 86 fL (79-100) Mean Corpuscular Hemoglobin 30 pg (25-35) Mean Corpuscular Hemoglobin Concent 35 g/dL (31-37) Red Cell Distribution Width 14.9 % (11.5-14.5) Platelet Count 227 x10^3/uL (140-400) Neutrophils (%) (Auto) 91 % (31-73) Lymphocytes (%) (Auto) 7 % (24-48) Monocytes (%) (Auto) 2 % (0-9) Eosinophils (%) (Auto) 0 % (0-3) Basophils (%) (Auto) 0 % (0-3) Neutrophils # (Auto) 8.7 x10^3uL (1.8-7.7) Lymphocytes # (Auto) 0.6 x10^3/uL (1.0-4.8) Monocytes # (Auto) 0.2 x10^3/uL (0.0-1.1) Eosinophils # (Auto) 0.0 x10^3/uL (0.0-0.7) Basophils # (Auto) 0.0 x10^3/uL (0.0-0.2) Segmented Neutrophils % 91 % (35-66) Band Neutrophils % 2 % (0-9) Lymphocytes % 5 % (24-48) Monocytes % 2 % (0-10) Platelet Estimate Adequate (ADEQUATE) Sodium Level 138 mmol/L (136-145) Potassium Level 4.0 mmol/L (3.5-5.1) Chloride Level 103 mmol/L (98-107) Carbon Dioxide Level 27 mmol/L (21-32) Anion Gap 8 (6-14) Blood Urea Nitrogen 12 mg/dL (8-26) Creatinine 0.9 mg/dL (0.7-1.3) Estimated GFR (Cockcroft-Gault) 82.3 Glucose Level 123 mg/dL (70-99) Calcium Level 8.8 mg/dL (8.5-10.1) Medications Active Scripts Medications Dose Route/Sig Max Daily Dose Days Date Category Albuterol Sulfate Neb Soln (Albuterol Sulfate) 2.5 Mg/3 Ml Vial.neb 1 Vial NEB PRN QID PRN 11/15/16 Reported Ipratropium [place] 0.2 Mg/1 Ml Solution 1 Vial NEB PRN QID PRN 11/15/16 Reported Mucinex (Guaifenesin) 600 Mg Tablet.er 1 Tab PO BID 11/15/16 Reported Proair Hfa Inhaler (Albuterol Sulfate) 8.5 Gm Hfa.aer.ad 1 Puff INH PRN Q6HRS PRN 08/15/16 Rx Impression . IMPRESSION: 1. Dyspnea, multifactorial in etiology. 2. Acute exacerbation of chronic obstructive pulmonary disease. 3. Acute bronchitis. 4. Hypertension. 5. Ex-smoker. 6. Gastroesophageal reflux disease. 7. Allergic rhinitis. Plan . PLAN AND RECOMMENDATIONS: 1. Titrate FiO2 to keep O2 saturation 92%. 2. change duoneb to atrovent only q.i.d. p.r.n. shortness of breath. 3. Pulmicort b.i.d. 4. Continue Solu-Medrol, no dose change. 5. Continue Levaquin. 6. Lovenox for DVT prophylaxis. 7. Protonix for gastroesophageal reflux disease. 8. add singulair. flonase. The findings and recommendations were discussed with the patient and his caregiver. I have answered all of their questions. They understood and agreed to proceed with the plan. BECKY CHOUDHURY MD Nov 16, 2016 12:27
[2016-11-16] MEDS: FLUTICASONE 50MCG/NASAL SPRAY 16GM BOTTLE. NS SCH (13:00)
[2016-11-16] MEDS ORDERED: IPRATROPIUM BROMIDE 0.5 MG/2.5 ML NEBU. ONE (14:11)
[2016-11-16] MEDS: ENOXAPARIN 40 MG/0.4 ML SYRINGE. SQ SCH (14:14)
[2016-11-16] MEDS: IPRATROPIUM BROMIDE 0.5 MG/2.5 ML NEBU. NEB SCH ×2 (14:15→19:37)
[2016-11-16 14:55] VITALS: BP 126/89
[2016-11-16] MEDS ORDERED: SODIUM CHLORIDE 0.65% NASAL SPRAY 45ML BOTTLE. NS PRN (18:15)
[2016-11-16 19:35] VITALS: BP 132/75
[2016-11-16] MEDS: MONTELUKAST SODIUM 10 MG TABLET. PO SCH (21:37)
[2016-11-16 23:52] VITALS: BP 114/69
[2016-11-17 03:40] VITALS: BP 119/75
[2016-11-17] MEDS: methylPREDNISolone SOD SUCC PF 125 MG/2 ML VIAL. IV SCH ×3 (05:38→20:56)
[2016-11-17 07:00] VITALS: BP 134/74
[2016-11-17] MEDS: IPRATROPIUM BROMIDE 0.5 MG/2.5 ML NEBU. NEB SCH ×4 (07:33→19:26)
[2016-11-17] MEDS: BUDESONIDE 0.5 MG/2 ML NEBU. NEB SCH ×2 (07:33→19:26)
[2016-11-17] MEDS: PANTOPRAZOLE 40 MG TABLET.DR. PO SCH (07:58)
[2016-11-17] MEDS: FLUTICASONE 50MCG/NASAL SPRAY 16GM BOTTLE. NS SCH (08:02)
--- NOTE | 2016-11-17 10:31 | PDOC ---
PROGRESS NOTES Subjective Subjective says he is feeling better but still has dyspnea on exertion due to his severe copd, note albuterol discontinued and switched to atrovent nebulizer rx. says mucinex po does not he,lp and wants to take mucinex nasal spray bid prn instead which is okay. coughed sputum yesterday but not this morning. blood pressure is okay. Objective Objective Vital Signs Date Time Temp Pulse Resp B/P (MAP) Pulse Ox O2 Delivery O2 Flow Rate FiO2 11/17/16 07:35 94 Room Air 11/17/16 07:00 97.5 94 20 134/74 (94) 97.5 Intake and Output 11/17/16 07:00 Intake Total 570 ml Balance 570 ml Intake Oral 570 ml # Voids 2 Physical Exam Abdomen: Soft Heart: Regular rate, Normal S1, Normal S2 Extremities: No edema General: Alert HEENT: Atraumatic Lungs: Clear to auscultation, Other (decreased breath sounds bilaterally) Neuro: Normal speech Psych/Mental Status: Mental status NL Skin: No rashes Assessment Assessment Problems1. Chronic obstructive pulmonary disease with acute exacerbation. 2. Acute bronchitis. 3. Hypokalemia.resolved 4. Hypertension. Medical Problems: (1) COPD exacerbation Status: Acute Plan Plan of Care continue iv solumedrol continue atrovent and budesonide nebulizer rx d/c oral mucinex continue levaquin continue amlodipine continue lovenox for dvt prophylaxis continue PT and OT Comment Review of Relevant I have reviewed the following items francisco (where applicable) has been applied. Labs Laboratory Tests Test 11/15/16 17:13 11/16/16 05:37 O2 Saturation 95 % (92-99) Arterial Blood pH 7.48 (7.35-7.45) Arterial Blood pCO2 at Patient Temp 30 mmHg (35-46) Arterial Blood pO2 at Patient Temp 72 mmHg (65-108) Arterial Blood HCO3 22 mmol/L (21-28) Arterial Blood Base Excess -1 mmol/L (-3-3) FiO2 21 White Blood Count 9.5 x10^3/uL (4.0-11.0) Red Blood Count 4.76 x10^6/uL (4.30-5.70) Hemoglobin 14.2 g/dL (13.0-17.5) Hematocrit 40.8 % (39.0-53.0) Mean Corpuscular Volume 86 fL (79-100) Mean Corpuscular Hemoglobin 30 pg (25-35) Mean Corpuscular Hemoglobin Concent 35 g/dL (31-37) Red Cell Distribution Width 14.9 % (11.5-14.5) Platelet Count 227 x10^3/uL (140-400) Neutrophils (%) (Auto) 91 % (31-73) Lymphocytes (%) (Auto) 7 % (24-48) Monocytes (%) (Auto) 2 % (0-9) Eosinophils (%) (Auto) 0 % (0-3) Basophils (%) (Auto) 0 % (0-3) Neutrophils # (Auto) 8.7 x10^3uL (1.8-7.7) Lymphocytes # (Auto) 0.6 x10^3/uL (1.0-4.8) Monocytes # (Auto) 0.2 x10^3/uL (0.0-1.1) Eosinophils # (Auto) 0.0 x10^3/uL (0.0-0.7) Basophils # (Auto) 0.0 x10^3/uL (0.0-0.2) Segmented Neutrophils % 91 % (35-66) Band Neutrophils % 2 % (0-9) Lymphocytes % 5 % (24-48) Monocytes % 2 % (0-10) Platelet Estimate Adequate (ADEQUATE) Sodium Level 138 mmol/L (136-145) Potassium Level 4.0 mmol/L (3.5-5.1) Chloride Level 103 mmol/L (98-107) Carbon Dioxide Level 27 mmol/L (21-32) Anion Gap 8 (6-14) Blood Urea Nitrogen 12 mg/dL (8-26) Creatinine 0.9 mg/dL (0.7-1.3) Estimated GFR (Cockcroft-Gault) 82.3 Glucose Level 123 mg/dL (70-99) Calcium Level 8.8 mg/dL (8.5-10.1) Microbiology 11/15/16 Gram Stain - Final, Complete Medications Current Medications Methylprednisolone Sodium Succinate (SOLU-Medrol 125MG VIAL) 60 mg Q8HRS IV Last administered on 11/17/16t 05:38; Start 11/15/16 at 14:00 Albuterol/ Ipratropium (Duoneb) 3 ml 1X ONCE NEB Last administered on 12:31; Start 11/15/16 at 11:00; Stop 11/15/16 at 11:01; Status DC Budesonide (Pulmicort) 0.5 mg 1X ONCE NEB Last administered on 11/15/16 12:28 ; Start 11/15/16 at 11:00; Stop 11/15/16 at 11:01; Status DC Levofloxacin (Levaquin) 500 mg DAILY PO Last administered on 11/17/16 07:58; Start 11/16/16 at 09:00 Enoxaparin Sodium (Lovenox Per Pharmacy Prophylaxis Dosing) 1 each PRN DAILY PRN MC SEE COMMENTS; Start 11/15/16 at 10:30; Stop 11/15/16 at 12:31; Status DC Levofloxacin (Levaquin) 500 mg 1X ONCE PO Last administered on 11/15/16 11:03 ; Start 11/15/16 at 11:00; Stop 11/15/16 at 11:01; Status DC Methylprednisolone Sodium Succinate (SOLU-Medrol 125MG VIAL) 60 mg 1X ONCE IV Last administered on 11/15/16 11:03; Start 11/15/16 at 11:00; Stop 11/15/16 at 11:01; Status DC Enoxaparin Sodium (Lovenox 40mg Syringe) 40 mg Q24H SQ ; Start 11/15/16 at 11:00 ; Stop 11/15/16 at 12:28; Status DC Albuterol/ Ipratropium (Duoneb) 3 ml RTQID NEB Last administered on 11/16/16 07:17; Start 11/15/16 at 16:00; Stop 11/16/16 at 12:28; Status DC Budesonide (Pulmicort) 0.5 mg RTBID NEB Last administered on 11/17/16 07:33; Start 11/15/16 at 20:00 Enoxaparin Sodium (Lovenox 40mg Syringe) 30 mg Q24H SQ ; Start 11/15/16 at 12:30 ; Status UNV Pantoprazole Sodium (Protonix) 40 mg DAILYAC PO Last administered on 11/17/16 07:58; Start 11/16/16 at 07:30 Enoxaparin Sodium (Lovenox 30mg Syringe) 30 mg Q24H SQ Last administered on 15:06; Start 11/15/16 at 13:00; Stop 11/15/16 at 15:47; Status DC Enoxaparin Sodium (Lovenox 40mg Syringe) 40 mg Q24H SQ Last administered on 14:14; Start 11/16/16 at 15:00 Acetaminophen (Tylenol) 650 mg PRN Q6HRS PRN PO MILD PAIN / TEMP; Start at 15:45 Magnesium Hydroxide (Milk Of Magnesia) 2,400 mg PRN DAILY PRN PO CONSTIPATION; Start 11/15/16 at 15:45 Potassium Chloride (Klor-Con) 20 meq 1X ONCE PO Last administered on 17:56; Start 11/15/16 at 16:00; Stop 11/15/16 at 16:01; Status DC Albuterol Sulfate (Ventolin Neb Soln) 2.5 mg PRN Q4HRS PRN NEB SHORTNESS OF BREATH; Start 11/15/16 at 16:00 Guaifenesin (Mucinex) 1,200 mg BID PO Last administered on 11/17/16 07:59; Start 11/16/16 at 11:00 Montelukast Sodium (Singulair) 10 mg QHS PO Last administered on 11/16/16 21: 37; Start 11/16/16 at 21:00 Fluticasone Propionate (Flonase) 2 spray DAILY NS Last administered on 08:02; Start 11/16/16 at 13:00 Ipratropium [place] (Atrovent) 0.5 mg RTQID NEB Last administered on 11/17/16 07:33; Start 11/16/16 at 16:00 Ipratropium [place] (Atrovent) 0.5 mg STK-MED ONCE .ROUTE ; Start 11/16/16 at 14 :11; Stop 11/16/16 at 14:12; Status DC Sodium Chloride (Saline Mist Nasal) 1 rai PRN Q1HR PRN NS NASAL CONGESTION Last administered on 11/17/16 07:59; Start 11/16/16 at 18:15 Active Scripts Active Proair Hfa Inhaler (Albuterol Sulfate) 8.5 Gm Hfa.aer.ad 1 Puff INH PRN Q6HRS PRN Reported Albuterol Sulfate Neb Soln (Albuterol Sulfate) 2.5 Mg/3 Ml Vial.neb 1 Vial NEB PRN QID PRN Ipratropium [place] 0.2 Mg/1 Ml Solution 1 Vial NEB PRN QID PRN Mucinex (Guaifenesin) 600 Mg Tablet.er 1 Tab PO BID Vitals/I & O Vital Sign - Last 24 Hours 11/16/16 11/16/16 11/16/16 11/16/16 10:46 14:17 14:55 19:35 Temp 98.6 97.7 97.7 98.6 97.7 97.7 Pulse 99 113 89 Resp 28 24 B/P (MAP) 110/69 (83) 126/89 (101) 132/75 (94) Pulse Ox 92 95 93 93 O2 Delivery Room Air Room Air Room Air Room Air 11/16/16 11/16/16 11/16/16 11/16/16 19:42 19:42 20:00 23:52 Temp 98.4 98.4 Pulse 70 Resp 22 B/P (MAP) 114/69 (84) Pulse Ox 94 94 92 O2 Delivery Room Air Room Air Room Air Room Air 11/17/16 11/17/16 11/17/16 03:40 07:00 07:35 Temp 98.1 97.5 98.1 97.5 Pulse 77 94 Resp 20 20 B/P (MAP) 119/75 (90) 134/74 (94) Pulse Ox 92 95 94 O2 Delivery Room Air Room Air Room Air Intake and Output 11/16/16 11/16/16 11/17/16 15:00 23:00 07:00 Intake Total 120 ml 450 ml Balance 120 ml 450 ml JULIETTE SHARMA MD Nov 17, 2016 10:31
[2016-11-17 11:00] VITALS: BP 134/80
--- NOTE | 2016-11-17 12:37 | PDOC ---
PULMONARY PROGRESS NOTES Subjective sob, cough better, no sputum, no pain, makes silver solution for nasal congestion, advised not to use Vitals Vital Signs Date Time Temp Pulse Resp B/P (MAP) Pulse Ox O2 Delivery O2 Flow Rate FiO2 11/17/16 11:54 93 Room Air 11/17/16 11:00 98.0 94 20 134/80 (98) 98.0 ROS: No Chest Pain, No Abdominal Pain General: Alert HEENT: Other (nc at perrl nose inflamed mucosa. throat clear) Lungs: Other (deminished) Cardiovascular: S1, S2 Abdomen: Soft, Non-tender Neuro Exam: Alert Extremities: No Edema Skin: Warm Labs Laboratory Tests Test 11/15/16 17:13 11/16/16 05:37 O2 Saturation 95 % (92-99) Arterial Blood pH 7.48 (7.35-7.45) Arterial Blood pCO2 at Patient Temp 30 mmHg (35-46) Arterial Blood pO2 at Patient Temp 72 mmHg (65-108) Arterial Blood HCO3 22 mmol/L (21-28) Arterial Blood Base Excess -1 mmol/L (-3-3) FiO2 21 White Blood Count 9.5 x10^3/uL (4.0-11.0) Red Blood Count 4.76 x10^6/uL (4.30-5.70) Hemoglobin 14.2 g/dL (13.0-17.5) Hematocrit 40.8 % (39.0-53.0) Mean Corpuscular Volume 86 fL (79-100) Mean Corpuscular Hemoglobin 30 pg (25-35) Mean Corpuscular Hemoglobin Concent 35 g/dL (31-37) Red Cell Distribution Width 14.9 % (11.5-14.5) Platelet Count 227 x10^3/uL (140-400) Neutrophils (%) (Auto) 91 % (31-73) Lymphocytes (%) (Auto) 7 % (24-48) Monocytes (%) (Auto) 2 % (0-9) Eosinophils (%) (Auto) 0 % (0-3) Basophils (%) (Auto) 0 % (0-3) Neutrophils # (Auto) 8.7 x10^3uL (1.8-7.7) Lymphocytes # (Auto) 0.6 x10^3/uL (1.0-4.8) Monocytes # (Auto) 0.2 x10^3/uL (0.0-1.1) Eosinophils # (Auto) 0.0 x10^3/uL (0.0-0.7) Basophils # (Auto) 0.0 x10^3/uL (0.0-0.2) Segmented Neutrophils % 91 % (35-66) Band Neutrophils % 2 % (0-9) Lymphocytes % 5 % (24-48) Monocytes % 2 % (0-10) Platelet Estimate Adequate (ADEQUATE) Sodium Level 138 mmol/L (136-145) Potassium Level 4.0 mmol/L (3.5-5.1) Chloride Level 103 mmol/L (98-107) Carbon Dioxide Level 27 mmol/L (21-32) Anion Gap 8 (6-14) Blood Urea Nitrogen 12 mg/dL (8-26) Creatinine 0.9 mg/dL (0.7-1.3) Estimated GFR (Cockcroft-Gault) 82.3 Glucose Level 123 mg/dL (70-99) Calcium Level 8.8 mg/dL (8.5-10.1) Medications Active Scripts Medications Dose Route/Sig Max Daily Dose Days Date Category Albuterol Sulfate Neb Soln (Albuterol Sulfate) 2.5 Mg/3 Ml Vial.neb 1 Vial NEB PRN QID PRN 11/15/16 Reported Ipratropium [place] 0.2 Mg/1 Ml Solution 1 Vial NEB PRN QID PRN 11/15/16 Reported Mucinex (Guaifenesin) 600 Mg Tablet.er 1 Tab PO BID 11/15/16 Reported Proair Hfa Inhaler (Albuterol Sulfate) 8.5 Gm Hfa.aer.ad 1 Puff INH PRN Q6HRS PRN 08/15/16 Rx Impression . IMPRESSION: 1. Dyspnea, multifactorial in etiology. 2. Acute exacerbation of chronic obstructive pulmonary disease. 3. Acute bronchitis. 4. Hypertension. 5. Ex-smoker. 6. Gastroesophageal reflux disease. 7. Allergic rhinitis. Plan . PLAN AND RECOMMENDATIONS: 1. Titrate FiO2 to keep O2 saturation 92%. 2. atrovent only q.i.d. p.r.n. shortness of breath, didnt like duoneb 3. Pulmicort b.i.d. 4. change Solu-Medrol to 40 q 8hrs 5. Continue Levaquin. 6. Lovenox for DVT prophylaxis. 7. Protonix for gastroesophageal reflux disease. 8. singulair. doesnt want flonase, cont ns nose spray. The findings and recommendations were discussed with the patient and his caregiver. I have answered all of their questions. They understood and agreed to proceed with the plan. BECKY CHOUDHURY MD Nov 17, 2016 12:37
[2016-11-17] MEDS: ENOXAPARIN 40 MG/0.4 ML SYRINGE. SQ SCH (14:39)
[2016-11-17 15:42] VITALS: BP 116/70
[2016-11-17 19:50] VITALS: BP 127/76
[2016-11-17] MEDS: MONTELUKAST SODIUM 10 MG TABLET. PO SCH (20:56)
[2016-11-17 23:02] VITALS: BP 116/67
[2016-11-18 03:23] VITALS: BP 117/71
[2016-11-18] MEDS: methylPREDNISolone SOD SUCC PF 125 MG/2 ML VIAL. IV SCH ×3 (06:06→20:46)
[2016-11-18] MEDS: BUDESONIDE 0.5 MG/2 ML NEBU. NEB SCH ×2 (07:39→20:09)
[2016-11-18] MEDS: IPRATROPIUM BROMIDE 0.5 MG/2.5 ML NEBU. NEB SCH ×4 (07:39→20:09)
[2016-11-18 07:55] VITALS: BP 144/77
--- NOTE | 2016-11-18 08:03 | PDOC ---
PROGRESS NOTES Subjective Subjective breathing better. was short o f breath at times at night causing insomnia. says he can go to sleep this morning if he closes his eyes, denies post nasal drip or nasal discharge and not coughing mucus. iv solumedrol decreased yesterday. Objective Objective Vital Signs Date Time Temp Pulse Resp B/P (MAP) Pulse Ox O2 Delivery O2 Flow Rate FiO2 11/18/16 07:40 93 Room Air 11/18/16 03:23 97.5 69 16 117/71 (86) 97.5 Intake and Output 11/18/16 07:00 Intake Total 997 ml Output Total 2 ml Balance 995 ml Intake Oral 997 ml Output Stool Total 2 ml # Voids 3 Physical Exam Abdomen: Soft Heart: Regular rate, Normal S1, Normal S2 Extremities: No edema General: Alert HEENT: Atraumatic Lungs: Clear to auscultation (bilateral decreased breath sounds) Neuro: Normal speech Psych/Mental Status: Mental status NL Skin: No rashes Assessment Assessment Problems1. Chronic obstructive pulmonary disease with acute exacerbation. slow improvement 2. Acute bronchitis. 3. Hypokalemia.resolved 4. Hypertension. 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 Labs Microbiology 11/15/16 Gram Stain - Final, Complete Medications Current Medications Methylprednisolone Sodium Succinate (SOLU-Medrol 125MG VIAL) 60 mg Q8HRS IV Last administered on 11/17/16 05:38; Start 11/15/16 at 14:00; Stop 11/17/16 at 12:38; Status DC Albuterol/ Ipratropium (Duoneb) 3 ml 1X ONCE NEB Last administered on 12:31; Start 11/15/16 at 11:00; Stop 11/15/16 at 11:01; Status DC Budesonide (Pulmicort) 0.5 mg 1X ONCE NEB Last administered on 11/15/16 12:28 ; Start 11/15/16 at 11:00; Stop 11/15/16 at 11:01; Status DC Levofloxacin (Levaquin) 500 mg DAILY PO Last administered on 11/17/16 07:58; Start 11/16/16 at 09:00 Enoxaparin Sodium (Lovenox Per Pharmacy Prophylaxis Dosing) 1 each PRN DAILY PRN MC SEE COMMENTS; Start 11/15/16 at 10:30; Stop 11/15/16 at 12:31; Status DC Levofloxacin (Levaquin) 500 mg 1X ONCE PO Last administered on 11/15/16 11:03 ; Start 11/15/16 at 11:00; Stop 11/15/16 at 11:01; Status DC Methylprednisolone Sodium Succinate (SOLU-Medrol 125MG VIAL) 60 mg 1X ONCE IV Last administered on 11/15/16 11:03; Start 11/15/16 at 11:00; Stop 11/15/16 at 11:01; Status DC Enoxaparin Sodium (Lovenox 40mg Syringe) 40 mg Q24H SQ ; Start 11/15/16 at 11:00 ; Stop 11/15/16 at 12:28; Status DC Albuterol/ Ipratropium (Duoneb) 3 ml RTQID NEB Last administered on 11/16/16 07:17; Start 11/15/16 at 16:00; Stop 11/16/16 at 12:28; Status DC Budesonide (Pulmicort) 0.5 mg RTBID NEB Last administered on 11/18/16 07:39; Start 11/15/16 at 20:00 Enoxaparin Sodium (Lovenox 40mg Syringe) 30 mg Q24H SQ ; Start 11/15/16 at 12:30 ; Status UNV Pantoprazole Sodium (Protonix) 40 mg DAILYAC PO Last administered on 11/17/16 07:58; Start 11/16/16 at 07:30 Enoxaparin Sodium (Lovenox 30mg Syringe) 30 mg Q24H SQ Last administered on 15:06; Start 11/15/16 at 13:00; Stop 11/15/16 at 15:47; Status DC Enoxaparin Sodium (Lovenox 40mg Syringe) 40 mg Q24H SQ Last administered on 14:39; Start 11/16/16 at 15:00 Acetaminophen (Tylenol) 650 mg PRN Q6HRS PRN PO MILD PAIN / TEMP; Start at 15:45 Magnesium Hydroxide (Milk Of Magnesia) 2,400 mg PRN DAILY PRN PO CONSTIPATION; Start 11/15/16 at 15:45 Potassium Chloride (Klor-Con) 20 meq 1X ONCE PO Last administered on 17:56; Start 11/15/16 at 16:00; Stop 11/15/16 at 16:01; Status DC Albuterol Sulfate (Ventolin Neb Soln) 2.5 mg PRN Q4HRS PRN NEB SHORTNESS OF BREATH; Start 11/15/16 at 16:00; Stop 11/17/16 at 10:27; Status DC Guaifenesin (Mucinex) 1,200 mg BID PO Last administered on 11/17/16 07:59; Start 11/16/16 at 11:00; Stop 11/17/16 at 10:27; Status DC Montelukast Sodium (Singulair) 10 mg QHS PO Last administered on 11/17/16 20: 56; Start 11/16/16 at 21:00 Fluticasone Propionate (Flonase) 2 spray DAILY NS Last administered on 08:02; Start 11/16/16 at 13:00 Ipratropium [place] (Atrovent) 0.5 mg RTQID NEB Last administered on 11/18/16 07:39; Start 11/16/16 at 16:00 Ipratropium [place] (Atrovent) 0.5 mg STK-MED ONCE .ROUTE ; Start 11/16/16 at 14 :11; Stop 11/16/16 at 14:12; Status DC Sodium Chloride (Saline Mist Nasal) 1 rai PRN Q1HR PRN NS NASAL CONGESTION Last administered on 11/17/16 07:59; Start 11/16/16 at 18:15 Methylprednisolone Sodium Succinate (SOLU-Medrol 125MG VIAL) 40 mg Q8HRS IV Last administered on 11/18/16 06:06; Start 11/17/16 at 14:00 Active Scripts Active Proair Hfa Inhaler (Albuterol Sulfate) 8.5 Gm Hfa.aer.ad 1 Puff INH PRN Q6HRS PRN Reported Albuterol Sulfate Neb Soln (Albuterol Sulfate) 2.5 Mg/3 Ml Vial.neb 1 Vial NEB PRN QID PRN Ipratropium [place] 0.2 Mg/1 Ml Solution 1 Vial NEB PRN QID PRN Mucinex (Guaifenesin) 600 Mg Tablet.er 1 Tab PO BID Vitals/I & O Vital Sign - Last 24 Hours 11/17/16 11/17/16 11/17/16 11/17/16 08:00 11:00 11:54 15:09 Temp 98.0 98.0 Pulse 94 Resp 20 B/P (MAP) 134/80 (98) Pulse Ox 93 93 O2 Delivery Room Air Room Air Room Air Room Air 11/17/16 11/17/16 11/17/16 11/17/16 15:42 19:27 19:27 19:50 Temp 98.4 98.4 98.4 98.4 Pulse 88 86 Resp 20 20 B/P (MAP) 116/70 (85) 127/76 (93) Pulse Ox 93 93 O2 Delivery Room Air Room Air Room Air Room Air 11/17/16 11/17/16 11/18/16 11/18/16 20:11 23:02 03:23 07:40 Temp 98.7 97.5 98.7 97.5 Pulse 83 69 Resp 20 16 B/P (MAP) 116/67 (83) 117/71 (86) Pulse Ox 92 94 93 O2 Delivery Room Air Room Air Room Air Room Air Intake and Output 11/17/16 11/17/16 11/18/16 15:00 23:00 07:00 Intake Total 360 ml 637 ml Output Total 2 ml Balance 358 ml 637 ml JULIETTE SHARMA MD Nov 18, 2016 08:02
[2016-11-18] MEDS: PANTOPRAZOLE 40 MG TABLET.DR. PO SCH (08:07)
[2016-11-18] MEDS ORDERED: ALBUTEROL SULFATE 2.5 MG/3 ML NEBU. NEB PRN (08:15)
--- NOTE | 2016-11-18 09:16 | PDOC ---
PULMONARY PROGRESS NOTES Subjective PT FEELS BETTER LESS SOA Vitals Vital Signs Date Time Temp Pulse Resp B/P (MAP) Pulse Ox O2 Delivery O2 Flow Rate FiO2 11/18/16 07:55 98.6 79 17 144/77 (99) 93 Room Air 98.6 ROS: No Nausea, No Chest Pain, No Abdominal Pain, No Increase Cough General: Alert HEENT: Other (nc at perrl nose inflamed mucosa. throat clear) Lungs: Other (deminished) Cardiovascular: S1, S2 Abdomen: Soft, Non-tender Neuro Exam: Alert Extremities: No Edema Skin: Warm Medications Active Scripts Medications Dose Route/Sig Max Daily Dose Days Date Category Albuterol Sulfate Neb Soln (Albuterol Sulfate) 2.5 Mg/3 Ml Vial.neb 1 Vial NEB PRN QID PRN 11/15/16 Reported Ipratropium [place] 0.2 Mg/1 Ml Solution 1 Vial NEB PRN QID PRN 11/15/16 Reported Mucinex (Guaifenesin) 600 Mg Tablet.er 1 Tab PO BID 11/15/16 Reported Proair Hfa Inhaler (Albuterol Sulfate) 8.5 Gm Hfa.aer.ad 1 Puff INH PRN Q6HRS PRN 08/15/16 Rx Impression . IMPRESSION: 1. Progressive dyspnea 2. Acute exacerbation of chronic obstructive pulmonary disease. 3. Acute bronchitis. 4. Hypertension. 5. Ex-smoker. 6. Gastroesophageal reflux disease. 7. Allergic rhinitis. Plan . will obtain PFT from office slowly improving 1. Titrate FiO2 to keep O2 saturation 92%. 2. Atrovent only q.i.d. p.r.n. shortness of breath, didnt like duoneb 3. Pulmicort b.i.d. 4. change Solu-Medrol to 40 q 8hrs 5. Continue Levaquin. 6. Lovenox for DVT prophylaxis. 7. Protonix for gastroesophageal reflux disease. 8. Singulair. doesn't want VEENA Hernandes SABATO MD Nov 18, 2016 09:16
[2016-11-18 11:05] VITALS: BP 124/77
[2016-11-18] MEDS: ENOXAPARIN 40 MG/0.4 ML SYRINGE. SQ SCH (14:02)
[2016-11-18 15:25] VITALS: BP 140/91
[2016-11-18 19:56] VITALS: BP 132/82
[2016-11-18] MEDS: MONTELUKAST SODIUM 10 MG TABLET. PO SCH (20:46)
[2016-11-18 23:24] VITALS: BP 119/76
[2016-11-19 03:41] VITALS: BP 112/72
[2016-11-19 04:34] LABS: CALCIUM 8.1 mg/dL (8.5-10.1); CREATININE 0.9 mg/dL (0.7-1.3); GFR 82.3; POTASSIUM 4.1 mmol/L (3.5-5.1)
[2016-11-19] MEDS: methylPREDNISolone SOD SUCC PF 125 MG/2 ML VIAL. IV SCH ×2 (06:00→21:19)
[2016-11-19 07:01] VITALS: BP 143/77
[2016-11-19] MEDS: PANTOPRAZOLE 40 MG TABLET.DR. PO SCH (08:19)
[2016-11-19] MEDS: IPRATROPIUM BROMIDE 0.5 MG/2.5 ML NEBU. NEB SCH ×4 (08:40→19:24)
[2016-11-19] MEDS: BUDESONIDE 0.5 MG/2 ML NEBU. NEB SCH ×2 (08:43→19:24)
--- NOTE | 2016-11-19 09:54 | PDOC ---
PROGRESS NOTES Subjective Subjective feels better. says he is less short of breath. lab reviewed. Objective Objective Vital Signs Date Time Temp Pulse Resp B/P (MAP) Pulse Ox O2 Delivery O2 Flow Rate FiO2 11/19/16 09:32 94 Room Air 11/19/16 07:01 97.5 82 22 143/77 (99) 97.5 Physical Exam Abdomen: Soft Heart: Regular rate, Normal S1, Normal S2 Extremities: No edema General: Alert HEENT: Atraumatic Lungs: Clear to auscultation, Other (decreased bilateral breath sounds) Neuro: Normal speech Psych/Mental Status: Mental status NL Skin: No rashes Assessment Assessment Problems severe copd with acute exacerbation acute bronchitis hypertension Medical Problems: (1) COPD exacerbation Status: Acute Plan Plan of Care decrease iv solumedrol to 40mg every 12 hours continue budesonide nebulizer continue amlodipine continue nasal saline spray continue PT Comment Review of Relevant I have reviewed the following items francisco (where applicable) has been applied. Labs Laboratory Tests Test 11/19/16 03:55 Sodium Level 139 mmol/L (136-145) Potassium Level 4.1 mmol/L (3.5-5.1) Chloride Level 105 mmol/L (98-107) Carbon Dioxide Level 28 mmol/L (21-32) Anion Gap 6 (6-14) Blood Urea Nitrogen 25 mg/dL (8-26) Creatinine 0.9 mg/dL (0.7-1.3) Estimated GFR (Cockcroft-Gault) 82.3 Glucose Level 121 mg/dL (70-99) Calcium Level 8.1 mg/dL (8.5-10.1) Laboratory Tests Test 11/19/16 03:55 Sodium Level 139 mmol/L (136-145) Potassium Level 4.1 mmol/L (3.5-5.1) Chloride Level 105 mmol/L (98-107) Carbon Dioxide Level 28 mmol/L (21-32) Anion Gap 6 (6-14) Blood Urea Nitrogen 25 mg/dL (8-26) Creatinine 0.9 mg/dL (0.7-1.3) Estimated GFR (Cockcroft-Gault) 82.3 Glucose Level 121 mg/dL (70-99) Calcium Level 8.1 mg/dL (8.5-10.1) Microbiology 11/15/16 Gram Stain - Final, Complete Medications Current Medications Methylprednisolone Sodium Succinate (SOLU-Medrol 125MG VIAL) 60 mg Q8HRS IV Last administered on 11/17/16 05:38; Start 11/15/16 at 14:00; Stop 11/17/16 at 12:38; Status DC Albuterol/ Ipratropium (Duoneb) 3 ml 1X ONCE NEB Last administered on 12:31; Start 11/15/16 at 11:00; Stop 11/15/16 at 11:01; Status DC Budesonide (Pulmicort) 0.5 mg 1X ONCE NEB Last administered on 11/15/16 12:28 ; Start 11/15/16 at 11:00; Stop 11/15/16 at 11:01; Status DC Levofloxacin (Levaquin) 500 mg DAILY PO Last administered on 11/19/16 08:19; Start 11/16/16 at 09:00 Enoxaparin Sodium (Lovenox Per Pharmacy Prophylaxis Dosing) 1 each PRN DAILY PRN MC SEE COMMENTS; Start 11/15/16 at 10:30; Stop 11/15/16 at 12:31; Status DC Levofloxacin (Levaquin) 500 mg 1X ONCE PO Last administered on 11/15/16 11:03 ; Start 11/15/16 at 11:00; Stop 11/15/16 at 11:01; Status DC Methylprednisolone Sodium Succinate (SOLU-Medrol 125MG VIAL) 60 mg 1X ONCE IV Last administered on 11/15/16 11:03; Start 11/15/16 at 11:00; Stop 11/15/16 at 11:01; Status DC Enoxaparin Sodium (Lovenox 40mg Syringe) 40 mg Q24H SQ ; Start 11/15/16 at 11:00 ; Stop 11/15/16 at 12:28; Status DC Albuterol/ Ipratropium (Duoneb) 3 ml RTQID NEB Last administered on 11/16/16 07:17; Start 11/15/16 at 16:00; Stop 11/16/16 at 12:28; Status DC Budesonide (Pulmicort) 0.5 mg RTBID NEB Last administered on 11/19/16 08:43; Start 11/15/16 at 20:00 Enoxaparin Sodium (Lovenox 40mg Syringe) 30 mg Q24H SQ ; Start 11/15/16 at 12:30 ; Status UNV Pantoprazole Sodium (Protonix) 40 mg DAILYAC PO Last administered on 11/19/16 08:19; Start 11/16/16 at 07:30 Enoxaparin Sodium (Lovenox 30mg Syringe) 30 mg Q24H SQ Last administered on 15:06; Start 11/15/16 at 13:00; Stop 11/15/16 at 15:47; Status DC Enoxaparin Sodium (Lovenox 40mg Syringe) 40 mg Q24H SQ Last administered on 14:02; Start 11/16/16 at 15:00 Acetaminophen (Tylenol) 650 mg PRN Q6HRS PRN PO MILD PAIN / TEMP; Start at 15:45 Magnesium Hydroxide (Milk Of Magnesia) 2,400 mg PRN DAILY PRN PO CONSTIPATION; Start 11/15/16 at 15:45 Potassium Chloride (Klor-Con) 20 meq 1X ONCE PO Last administered on 17:56; Start 11/15/16 at 16:00; Stop 11/15/16 at 16:01; Status DC Albuterol Sulfate (Ventolin Neb Soln) 2.5 mg PRN Q4HRS PRN NEB SHORTNESS OF BREATH; Start 11/15/16 at 16:00; Stop 11/17/16 at 10:27; Status DC Guaifenesin (Mucinex) 1,200 mg BID PO Last administered on 11/17/16 07:59; Start 11/16/16 at 11:00; Stop 11/17/16 at 10:27; Status DC Montelukast Sodium (Singulair) 10 mg QHS PO Last administered on 11/18/16 20: 46; Start 11/16/16 at 21:00 Fluticasone Propionate (Flonase) 2 spray DAILY NS Last administered on 08:02; Start 11/16/16 at 13:00; Stop 11/18/16 at 07:59; Status DC Ipratropium [place] (Atrovent) 0.5 mg RTQID NEB Last administered on 11/19/16 08:40; Start 11/16/16 at 16:00 Ipratropium [place] (Atrovent) 0.5 mg STK-MED ONCE .ROUTE ; Start 11/16/16 at 14 :11; Stop 11/16/16 at 14:12; Status DC Sodium Chloride (Saline Mist Nasal) 1 rai PRN Q1HR PRN NS NASAL CONGESTION Last administered on 11/17/16 07:59; Start 11/16/16 at 18:15 Methylprednisolone Sodium Succinate (SOLU-Medrol 125MG VIAL) 40 mg Q8HRS IV Last administered on 11/19/16 06:00; Start 11/17/16 at 14:00 Albuterol Sulfate (Ventolin Neb Soln) 2.5 mg PRN Q4HRS PRN NEB SHORTNESS OF BREATH; Start 11/18/16 at 08:15 Active Scripts Active Proair Hfa Inhaler (Albuterol Sulfate) 8.5 Gm Hfa.aer.ad 1 Puff INH PRN Q6HRS PRN Reported Albuterol Sulfate Neb Soln (Albuterol Sulfate) 2.5 Mg/3 Ml Vial.neb 1 Vial NEB PRN QID PRN Ipratropium [place] 0.2 Mg/1 Ml Solution 1 Vial NEB PRN QID PRN Mucinex (Guaifenesin) 600 Mg Tablet.er 1 Tab PO BID Vitals/I & O Vital Sign - Last 24 Hours 11/18/16 11/18/16 11/18/16 11/18/16 11:05 11:47 15:25 15:45 Temp 98.0 97.3 98.0 97.3 Pulse 75 90 Resp 18 19 B/P (MAP) 124/77 (93) 140/91 (107) Pulse Ox 94 91 O2 Delivery Room Air Room Air Room Air Room Air 11/18/16 11/18/16 11/18/16 11/18/16 19:56 20:00 20:11 23:24 Temp 98.1 98.5 98.1 98.5 Pulse 82 75 Resp 16 16 B/P (MAP) 132/82 (99) 119/76 (90) Pulse Ox 93 94 O2 Delivery Room Air Room Air Room Air Room Air 11/19/16 11/19/16 11/19/16 11/19/16 03:41 07:01 08:43 09:32 Temp 98.2 97.5 98.2 97.5 Pulse 67 82 Resp 16 22 B/P (MAP) 112/72 (85) 143/77 (99) Pulse Ox 94 94 94 94 O2 Delivery Room Air Room Air Room Air Room Air JULIETTE SHARMA MD Nov 19, 2016 09:54
--- NOTE | 2016-11-19 10:02 | PDOC ---
PULMONARY PROGRESS NOTES Subjective PT FEELS BETTER LESS SOA Vitals Vital Signs Date Time Temp Pulse Resp B/P (MAP) Pulse Ox O2 Delivery O2 Flow Rate FiO2 11/19/16 09:32 94 Room Air 11/19/16 07:01 97.5 82 22 143/77 (99) 97.5 ROS: No Nausea, No Chest Pain, No Abdominal Pain, No Increase Cough General: Alert HEENT: Other (nc at perrl nose inflamed mucosa. throat clear) Lungs: Other (deminished) Cardiovascular: S1, S2 Abdomen: Soft, Non-tender Neuro Exam: Alert Extremities: No Edema Skin: Warm Labs Laboratory Tests Test 11/19/16 03:55 Sodium Level 139 mmol/L (136-145) Potassium Level 4.1 mmol/L (3.5-5.1) Chloride Level 105 mmol/L (98-107) Carbon Dioxide Level 28 mmol/L (21-32) Anion Gap 6 (6-14) Blood Urea Nitrogen 25 mg/dL (8-26) Creatinine 0.9 mg/dL (0.7-1.3) Estimated GFR (Cockcroft-Gault) 82.3 Glucose Level 121 mg/dL (70-99) Calcium Level 8.1 mg/dL (8.5-10.1) Laboratory Tests Test 11/19/16 03:55 Sodium Level 139 mmol/L (136-145) Potassium Level 4.1 mmol/L (3.5-5.1) Chloride Level 105 mmol/L (98-107) Carbon Dioxide Level 28 mmol/L (21-32) Anion Gap 6 (6-14) Blood Urea Nitrogen 25 mg/dL (8-26) Creatinine 0.9 mg/dL (0.7-1.3) Estimated GFR (Cockcroft-Gault) 82.3 Glucose Level 121 mg/dL (70-99) Calcium Level 8.1 mg/dL (8.5-10.1) Medications Active Scripts Medications Dose Route/Sig Max Daily Dose Days Date Category Albuterol Sulfate Neb Soln (Albuterol Sulfate) 2.5 Mg/3 Ml Vial.neb 1 Vial NEB PRN QID PRN 11/15/16 Reported Ipratropium [place] 0.2 Mg/1 Ml Solution 1 Vial NEB PRN QID PRN 11/15/16 Reported Mucinex (Guaifenesin) 600 Mg Tablet.er 1 Tab PO BID 11/15/16 Reported Proair Hfa Inhaler (Albuterol Sulfate) 8.5 Gm Hfa.aer.ad 1 Puff INH PRN Q6HRS PRN 08/15/16 Rx Impression . IMPRESSION: 1. Progressive dyspnea 2. Acute exacerbation of chronic obstructive pulmonary disease. 3. Acute bronchitis. 4. Hypertension. 5. Ex-smoker. 6. Gastroesophageal reflux disease. 7. Allergic rhinitis. Plan . RECENT FEV1 920 CC 27 % PREDICTED ADEQUATE BRONCHODILATOR RESPONSE SLOWLY IMPROVING 1. Titrate FiO2 to keep O2 saturation 92%. 2. Atrovent only q.i.d. p.r.n. shortness of breath, didnt like duoneb 3. Pulmicort b.i.d. 4. change Solu-Medrol to 40 q 8hrs 5. Continue Levaquin. 6. Lovenox for DVT prophylaxis. 7. Protonix for gastroesophageal reflux disease. 8. Singulair. doesn't want VEENA Hernandes SABATO MD Nov 19, 2016 10:02
[2016-11-19 10:49] VITALS: BP 146/85
[2016-11-19 15:07] VITALS: BP 120/87
[2016-11-19] MEDS: ENOXAPARIN 40 MG/0.4 ML SYRINGE. SQ SCH (15:13)
[2016-11-19 19:00] VITALS: BP 127/68
[2016-11-19] MEDS: MONTELUKAST SODIUM 10 MG TABLET. PO SCH (21:19)
[2016-11-19 23:00] VITALS: BP 125/81
[2016-11-20 03:00] VITALS: BP 127/71
[2016-11-20 07:31] VITALS: BP 130/80
[2016-11-20] MEDS: IPRATROPIUM BROMIDE 0.5 MG/2.5 ML NEBU. NEB SCH ×4 (08:18→20:34)
--- NOTE | 2016-11-20 09:05 | PDOC ---
PULMONARY PROGRESS NOTES Subjective PT FEELS BETTER LESS SOA Vitals Vital Signs Date Time Temp Pulse Resp B/P (MAP) Pulse Ox O2 Delivery O2 Flow Rate FiO2 11/20/16 08:19 95 Room Air 11/20/16 07:31 97.8 64 20 130/80 (97) 97.8 ROS: No Nausea, No Chest Pain, No Abdominal Pain, No Increase Cough General: Alert HEENT: Other (nc at perrl nose inflamed mucosa. throat clear) Lungs: Other (deminished) Cardiovascular: S1, S2 Abdomen: Soft, Non-tender Neuro Exam: Alert Extremities: No Edema Skin: Warm Labs Laboratory Tests Test 11/19/16 03:55 Sodium Level 139 mmol/L (136-145) Potassium Level 4.1 mmol/L (3.5-5.1) Chloride Level 105 mmol/L (98-107) Carbon Dioxide Level 28 mmol/L (21-32) Anion Gap 6 (6-14) Blood Urea Nitrogen 25 mg/dL (8-26) Creatinine 0.9 mg/dL (0.7-1.3) Estimated GFR (Cockcroft-Gault) 82.3 Glucose Level 121 mg/dL (70-99) Calcium Level 8.1 mg/dL (8.5-10.1) Medications Active Scripts Medications Dose Route/Sig Max Daily Dose Days Date Category Albuterol Sulfate Neb Soln (Albuterol Sulfate) 2.5 Mg/3 Ml Vial.neb 1 Vial NEB PRN QID PRN 11/15/16 Reported Ipratropium [place] 0.2 Mg/1 Ml Solution 1 Vial NEB PRN QID PRN 11/15/16 Reported Mucinex (Guaifenesin) 600 Mg Tablet.er 1 Tab PO BID 11/15/16 Reported Proair Hfa Inhaler (Albuterol Sulfate) 8.5 Gm Hfa.aer.ad 1 Puff INH PRN Q6HRS PRN 08/15/16 Rx Impression . IMPRESSION: 1. Progressive dyspnea 2. Acute exacerbation of chronic obstructive pulmonary disease. 3. Acute bronchitis. 4. Hypertension. 5. Ex-smoker. 6. Gastroesophageal reflux disease. 7. Allergic rhinitis. Plan . RECENT FEV1 920 CC 27 % PREDICTED ADEQUATE BRONCHODILATOR RESPONSE SLOWLY IMPROVING 1. Titrate FiO2 to keep O2 saturation 92%. 2. Atrovent only q.i.d. p.r.n. shortness of breath, didnt like duoneb 3. Pulmicort b.i.d. 4. change Solu-Medrol to 40 q 8hrs 5. Continue Levaquin. 6. Lovenox for DVT prophylaxis. 7. Protonix for gastroesophageal reflux disease. 8. Singulair. doesn't want VEENA Hernandes SABATO MD Nov 20, 2016 09:05
[2016-11-20] MEDS: methylPREDNISolone SOD SUCC PF 125 MG/2 ML VIAL. IV SCH ×2 (09:08→20:35)
[2016-11-20] MEDS: PANTOPRAZOLE 40 MG TABLET.DR. PO SCH (09:08)
--- NOTE | 2016-11-20 09:30 | PDOC ---
PROGRESS NOTES Subjective Subjective some shortness of breath with turning in bed. wants carla. 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 told him his DELGADO is chronic. Objective Objective Vital Signs Date Time Temp Pulse Resp B/P (MAP) Pulse Ox O2 Delivery O2 Flow Rate FiO2 11/20/16 08:19 95 Room Air 11/20/16 07:31 97.8 64 20 130/80 (97) 97.8 Physical Exam Abdomen: Soft Heart: Regular rate, Normal S1, Normal S2 Extremities: No edema General: Alert HEENT: Atraumatic Lungs: Clear to auscultation, Other (bilateral decreased breath sounds) Neuro: Normal speech Psych/Mental Status: Mental status NL Skin: No rashes Assessment Assessment Problemssevere copd with acute exacerbation. slow improvement acute bronchitis hypertension Medical Problems: (1) COPD exacerbation Status: Acute Plan Plan of Care discussed with dr. rosenbaum anticipate dismissal tomorrow switch to prednisone taper tomorrow prognosis poor continue atrovent and budesonide nebulizer rx Comment Review of Relevant I have reviewed the following items francisco (where applicable) has been applied. Labs Laboratory Tests Test 11/19/16 03:55 Sodium Level 139 mmol/L (136-145) Potassium Level 4.1 mmol/L (3.5-5.1) Chloride Level 105 mmol/L (98-107) Carbon Dioxide Level 28 mmol/L (21-32) Anion Gap 6 (6-14) Blood Urea Nitrogen 25 mg/dL (8-26) Creatinine 0.9 mg/dL (0.7-1.3) Estimated GFR (Cockcroft-Gault) 82.3 Glucose Level 121 mg/dL (70-99) Calcium Level 8.1 mg/dL (8.5-10.1) Microbiology 11/15/16 Gram Stain - Final, Complete Medications Current Medications Methylprednisolone Sodium Succinate (SOLU-Medrol 125MG VIAL) 60 mg Q8HRS IV Last administered on 11/17/16 05:38; Start 11/15/16 at 14:00; Stop 11/17/16 at 12:38; Status DC Albuterol/ Ipratropium (Duoneb) 3 ml 1X ONCE NEB Last administered on 12:31; Start 11/15/16 at 11:00; Stop 11/15/16 at 11:01; Status DC Budesonide (Pulmicort) 0.5 mg 1X ONCE NEB Last administered on 11/15/16 12:28 ; Start 11/15/16 at 11:00; Stop 11/15/16 at 11:01; Status DC Levofloxacin (Levaquin) 500 mg DAILY PO Last administered on 11/20/16 09:08; Start 11/16/16 at 09:00 Enoxaparin Sodium (Lovenox Per Pharmacy Prophylaxis Dosing) 1 each PRN DAILY PRN MC SEE COMMENTS; Start 11/15/16 at 10:30; Stop 11/15/16 at 12:31; Status DC Levofloxacin (Levaquin) 500 mg 1X ONCE PO Last administered on 11/15/16 11:03 ; Start 11/15/16 at 11:00; Stop 11/15/16 at 11:01; Status DC Methylprednisolone Sodium Succinate (SOLU-Medrol 125MG VIAL) 60 mg 1X ONCE IV Last administered on 11/15/16 11:03; Start 11/15/16 at 11:00; Stop 11/15/16 at 11:01; Status DC Enoxaparin Sodium (Lovenox 40mg Syringe) 40 mg Q24H SQ ; Start 11/15/16 at 11:00 ; Stop 11/15/16 at 12:28; Status DC Albuterol/ Ipratropium (Duoneb) 3 ml RTQID NEB Last administered on 11/16/16 07:17; Start 11/15/16 at 16:00; Stop 11/16/16 at 12:28; Status DC Budesonide (Pulmicort) 0.5 mg RTBID NEB Last administered on 11/19/16 19:24; Start 11/15/16 at 20:00 Enoxaparin Sodium (Lovenox 40mg Syringe) 30 mg Q24H SQ ; Start 11/15/16 at 12:30 ; Status UNV Pantoprazole Sodium (Protonix) 40 mg DAILYAC PO Last administered on 11/20/16 09:08; Start 11/16/16 at 07:30 Enoxaparin Sodium (Lovenox 30mg Syringe) 30 mg Q24H SQ Last administered on 15:06; Start 11/15/16 at 13:00; Stop 11/15/16 at 15:47; Status DC Enoxaparin Sodium (Lovenox 40mg Syringe) 40 mg Q24H SQ Last administered on 15:13; Start 11/16/16 at 15:00 Acetaminophen (Tylenol) 650 mg PRN Q6HRS PRN PO MILD PAIN / TEMP; Start at 15:45 Magnesium Hydroxide (Milk Of Magnesia) 2,400 mg PRN DAILY PRN PO CONSTIPATION; Start 11/15/16 at 15:45 Potassium Chloride (Klor-Con) 20 meq 1X ONCE PO Last administered on 17:56; Start 11/15/16 at 16:00; Stop 11/15/16 at 16:01; Status DC Albuterol Sulfate (Ventolin Neb Soln) 2.5 mg PRN Q4HRS PRN NEB SHORTNESS OF BREATH; Start 11/15/16 at 16:00; Stop 11/17/16 at 10:27; Status DC Guaifenesin (Mucinex) 1,200 mg BID PO Last administered on 11/17/16 07:59; Start 11/16/16 at 11:00; Stop 11/17/16 at 10:27; Status DC Montelukast Sodium (Singulair) 10 mg QHS PO Last administered on 11/19/16 21: 19; Start 11/16/16 at 21:00 Fluticasone Propionate (Flonase) 2 spray DAILY NS Last administered on 08:02; Start 11/16/16 at 13:00; Stop 11/18/16 at 07:59; Status DC Ipratropium [place] (Atrovent) 0.5 mg RTQID NEB Last administered on 11/20/16 08:18; Start 11/16/16 at 16:00 Ipratropium [place] (Atrovent) 0.5 mg STK-MED ONCE .ROUTE ; Start 11/16/16 at 14 :11; Stop 11/16/16 at 14:12; Status DC Sodium Chloride (Saline Mist Nasal) 1 rai PRN Q1HR PRN NS NASAL CONGESTION Last administered on 11/17/16 07:59; Start 11/16/16 at 18:15 Methylprednisolone Sodium Succinate (SOLU-Medrol 125MG VIAL) 40 mg Q8HRS IV Last administered on 11/19/16 06:00; Start 11/17/16 at 14:00; Stop 11/19/16 at 09:51; Status DC Albuterol Sulfate (Ventolin Neb Soln) 2.5 mg PRN Q4HRS PRN NEB SHORTNESS OF BREATH; Start 11/18/16 at 08:15 Methylprednisolone Sodium Succinate (SOLU-Medrol 125MG VIAL) 40 mg Q12HR IV Last administered on 11/20/16 09:08; Start 11/19/16 at 21:00 Active Scripts Active Proair Hfa Inhaler (Albuterol Sulfate) 8.5 Gm Hfa.aer.ad 1 Puff INH PRN Q6HRS PRN Reported Albuterol Sulfate Neb Soln (Albuterol Sulfate) 2.5 Mg/3 Ml Vial.neb 1 Vial NEB PRN QID PRN Ipratropium [place] 0.2 Mg/1 Ml Solution 1 Vial NEB PRN QID PRN Mucinex (Guaifenesin) 600 Mg Tablet.er 1 Tab PO BID Vitals/I & O Vital Sign - Last 24 Hours 11/19/16 11/19/16 11/19/16 11/19/16 09:32 10:49 12:23 15:07 Temp 98.1 98.2 98.1 98.2 Pulse 129 86 Resp 20 20 B/P (MAP) 146/85 (105) 120/87 (98) Pulse Ox 94 94 92 O2 Delivery Room Air Room Air Room Air Room Air 11/19/16 11/19/16 11/19/16 11/19/16 17:03 19:00 19:24 19:27 Temp 98.6 98.6 Pulse 79 Resp 20 B/P (MAP) 127/68 (87) Pulse Ox 94 94 94 O2 Delivery Room Air Room Air Room Air Room Air 11/19/16 11/19/16 11/20/16 11/20/16 20:00 23:00 03:00 07:31 Temp 97.9 97.9 97.8 97.9 97.9 97.8 Pulse 76 73 64 Resp 20 20 20 B/P (MAP) 125/81 (96) 127/71 (89) 130/80 (97) Pulse Ox 94 95 95 O2 Delivery Room Air Room Air Room Air Room Air 11/20/16 08:19 Pulse Ox 95 O2 Delivery Room Air JULIETTE SHARMA MD Nov 20, 2016 09:30
[2016-11-20 10:57] VITALS: BP 120/99
[2016-11-20] MEDS: BUDESONIDE 0.5 MG/2 ML NEBU. NEB SCH ×2 (11:24→20:34)
[2016-11-20] MEDS: guaiFENesin DM 200MG/20MG 10 ML SYRUP PO SCH ×4 (11:40→23:19)
[2016-11-20] MEDS: ENOXAPARIN 40 MG/0.4 ML SYRINGE. SQ SCH (13:42)
[2016-11-20 14:48] VITALS: BP 100/66
[2016-11-20 19:51] VITALS: BP 126/79
[2016-11-20] MEDS: MONTELUKAST SODIUM 10 MG TABLET. PO SCH (20:34)
[2016-11-20 23:14] VITALS: BP 122/81
[2016-11-21 03:11] VITALS: BP 117/65
[2016-11-21] MEDS: PANTOPRAZOLE 40 MG TABLET.DR. PO SCH (06:00)
[2016-11-21 07:00] VITALS: BP 130/81
[2016-11-21] MEDS: BUDESONIDE 0.5 MG/2 ML NEBU. NEB SCH (07:42)
[2016-11-21] MEDS: IPRATROPIUM BROMIDE 0.5 MG/2.5 ML NEBU. NEB SCH ×2 (07:43→11:33)
[2016-11-21] MEDS: guaiFENesin DM 200MG/20MG 10 ML SYRUP PO SCH ×2 (08:12→14:07)
[2016-11-21] MEDS: methylPREDNISolone SOD SUCC PF 125 MG/2 ML VIAL. IV SCH (08:13)
--- NOTE | 2016-11-21 09:50 | PDOC ---
PROGRESS NOTES Subjective Subjective breathing better. likes carla dm. discussed with dr. rosenbaum yesterday. ready for dismissal with home health Objective Objective Vital Signs Date Time Temp Pulse Resp B/P (MAP) Pulse Ox O2 Delivery O2 Flow Rate FiO2 11/21/16 08:19 Room Air 11/21/16 07:00 98.2 90 20 130/81 (97) 97 98.2 Physical Exam Abdomen: Soft Heart: Regular rate, Normal S1, Normal S2 Extremities: No edema General: Alert HEENT: Atraumatic Lungs: Clear to auscultation, Other (bilateral decreased breath sounds) Neuro: Normal speech Psych/Mental Status: Mental status NL Skin: No rashes Assessment Assessment Problems 1. severe copd with acute exacerbation. improved acute bronchitis hypertension Medical Problems: Medical Problems: (1) COPD exacerbation Status: Acute Plan Plan of Care dismiss today with home health change to prednisone taper Comment Review of Relevant I have reviewed the following items francisco (where applicable) has been applied. Labs Microbiology 11/15/16 Gram Stain - Final, Complete Medications Current Medications Methylprednisolone Sodium Succinate (SOLU-Medrol 125MG VIAL) 60 mg Q8HRS IV Last administered on 11/17/16 05:38; Start 11/15/16 at 14:00; Stop 11/17/16 at 12:38; Status DC Albuterol/ Ipratropium (Duoneb) 3 ml 1X ONCE NEB Last administered on 12:31; Start 11/15/16 at 11:00; Stop 11/15/16 at 11:01; Status DC Budesonide (Pulmicort) 0.5 mg 1X ONCE NEB Last administered on 11/15/16 12:28 ; Start 11/15/16 at 11:00; Stop 11/15/16 at 11:01; Status DC Levofloxacin (Levaquin) 500 mg DAILY PO Last administered on 11/21/16 08:12; Start 11/16/16 at 09:00 Enoxaparin Sodium (Lovenox Per Pharmacy Prophylaxis Dosing) 1 each PRN DAILY PRN MC SEE COMMENTS; Start 11/15/16 at 10:30; Stop 11/15/16 at 12:31; Status DC Levofloxacin (Levaquin) 500 mg 1X ONCE PO Last administered on 11/15/16 11:03 ; Start 11/15/16 at 11:00; Stop 11/15/16 at 11:01; Status DC Methylprednisolone Sodium Succinate (SOLU-Medrol 125MG VIAL) 60 mg 1X ONCE IV Last administered on 11/15/16 11:03; Start 11/15/16 at 11:00; Stop 11/15/16 at 11:01; Status DC Enoxaparin Sodium (Lovenox 40mg Syringe) 40 mg Q24H SQ ; Start 11/15/16 at 11:00 ; Stop 11/15/16 at 12:28; Status DC Albuterol/ Ipratropium (Duoneb) 3 ml RTQID NEB Last administered on 11/16/16 07:17; Start 11/15/16 at 16:00; Stop 11/16/16 at 12:28; Status DC Budesonide (Pulmicort) 0.5 mg RTBID NEB Last administered on 11/21/16 07:42; Start 11/15/16 at 20:00 Enoxaparin Sodium (Lovenox 40mg Syringe) 30 mg Q24H SQ ; Start 11/15/16 at 12:30 ; Status UNV Pantoprazole Sodium (Protonix) 40 mg DAILYAC PO Last administered on 11/21/16 06:00; Start 11/16/16 at 07:30 Enoxaparin Sodium (Lovenox 30mg Syringe) 30 mg Q24H SQ Last administered on 15:06; Start 11/15/16 at 13:00; Stop 11/15/16 at 15:47; Status DC Enoxaparin Sodium (Lovenox 40mg Syringe) 40 mg Q24H SQ Last administered on 13:42; Start 11/16/16 at 15:00 Acetaminophen (Tylenol) 650 mg PRN Q6HRS PRN PO MILD PAIN / TEMP; Start at 15:45 Magnesium Hydroxide (Milk Of Magnesia) 2,400 mg PRN DAILY PRN PO CONSTIPATION; Start 11/15/16 at 15:45 Potassium Chloride (Klor-Con) 20 meq 1X ONCE PO Last administered on 17:56; Start 11/15/16 at 16:00; Stop 11/15/16 at 16:01; Status DC Albuterol Sulfate (Ventolin Neb Soln) 2.5 mg PRN Q4HRS PRN NEB SHORTNESS OF BREATH; Start 11/15/16 at 16:00; Stop 11/17/16 at 10:27; Status DC Guaifenesin (Mucinex) 1,200 mg BID PO Last administered on 11/17/16 07:59; Start 11/16/16 at 11:00; Stop 11/17/16 at 10:27; Status DC Montelukast Sodium (Singulair) 10 mg QHS PO Last administered on 11/20/16 20: 34; Start 11/16/16 at 21:00 Fluticasone Propionate (Flonase) 2 spray DAILY NS Last administered on 08:02; Start 11/16/16 at 13:00; Stop 11/18/16 at 07:59; Status DC Ipratropium [place] (Atrovent) 0.5 mg RTQID NEB Last administered on 11/21/16 07:43; Start 11/16/16 at 16:00 Ipratropium [place] (Atrovent) 0.5 mg STK-MED ONCE .ROUTE ; Start 11/16/16 at 14 :11; Stop 11/16/16 at 14:12; Status DC Sodium Chloride (Saline Mist Nasal) 1 rai PRN Q1HR PRN NS NASAL CONGESTION Last administered on 11/17/16 07:59; Start 11/16/16 at 18:15 Methylprednisolone Sodium Succinate (SOLU-Medrol 125MG VIAL) 40 mg Q8HRS IV Last administered on 11/19/16 06:00; Start 11/17/16 at 14:00; Stop 11/19/16 at 09:51; Status DC Albuterol Sulfate (Ventolin Neb Soln) 2.5 mg PRN Q4HRS PRN NEB SHORTNESS OF BREATH; Start 11/18/16 at 08:15 Methylprednisolone Sodium Succinate (SOLU-Medrol 125MG VIAL) 40 mg Q12HR IV Last administered on 11/21/16 08:13; Start 11/19/16 at 21:00 Guaifenesin (Robitussin Dm) 10 ml QID PO Last administered on 11/21/16 08:12; Start 11/20/16 at 10:00 Active Scripts Active Proair Hfa Inhaler (Albuterol Sulfate) 8.5 Gm Hfa.aer.ad 1 Puff INH PRN Q6HRS PRN Reported Albuterol Sulfate Neb Soln (Albuterol Sulfate) 2.5 Mg/3 Ml Vial.neb 1 Vial NEB PRN QID PRN Ipratropium [place] 0.2 Mg/1 Ml Solution 1 Vial NEB PRN QID PRN Mucinex (Guaifenesin) 600 Mg Tablet.er 1 Tab PO BID Vitals/I & O Vital Sign - Last 24 Hours 11/20/16 11/20/16 11/20/16 11/20/16 10:57 11:25 14:48 15:03 Temp 97.9 97.9 97.9 97.9 Pulse 84 93 Resp 19 20 B/P (MAP) 120/99 (106) 100/66 (77) Pulse Ox 94 93 O2 Delivery Room Air Room Air Room Air Room Air 11/20/16 11/20/16 11/20/16 11/20/16 19:51 20:00 20:34 20:38 Temp 98.2 98.2 Pulse 93 Resp 20 B/P (MAP) 126/79 (95) Pulse Ox 94 94 94 O2 Delivery Room Air Room Air Room Air Room Air 11/20/16 11/21/16 11/21/16 11/21/16 23:14 03:11 07:00 07:44 Temp 98.2 98.3 98.2 98.2 98.3 98.2 Pulse 74 70 90 Resp 20 16 20 B/P (MAP) 122/81 (95) 117/65 (82) 130/81 (97) Pulse Ox 95 92 97 O2 Delivery Room Air Room Air Room Air Room Air 11/21/16 08:19 O2 Delivery Room Air JULIETTE SHARMA MD Nov 21, 2016 09:50
--- NOTE | 2016-11-21 10:05 | PDOC ---
Provider Note Provider Note discharge summary dictated # [id number] JULIETTE SHARMA MD Nov 21, 2016 10:05
--- NOTE | 2016-11-21 10:06 | DISCH ---
DISCHARGE INSTRUCTIONS Condition on Discharge Condition on Discharge: Stable Activity After Discharge Activity Instructions for Disc: Resume previous activity Diet after Discharge Diet after Discharge: Regular Follow-Up Follow up with: dr. sharma next week JULIETTE SHARMA MD Nov 21, 2016 10:06
[2016-11-21] MEDS ORDERED: PRED20TA PO (10:09)
[2016-11-21] MEDS ORDERED: BUDE0.5A NEB (10:09)
[2016-11-21] MEDS ORDERED: GUAI5SYR PO (10:09)
[2016-11-21] MEDS ORDERED: LEVO500T59 PO (10:09)
[2016-11-21] MEDS ORDERED: MONT10TA9 PO (10:09)
[2016-11-21] MEDS ORDERED: IPRA0.2S5 NEB (10:09)
[2016-11-21] MEDS ORDERED: SODI44SP NS (10:09)
--- NOTE | 2016-11-21 10:56 | DS ---
DATE OF DISCHARGE: 11/21/2016 [employer]ER: Dr. Ahuja. FINAL DIAGNOSES: 1. 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 2. Acute bronchitis. 3. Hypertension. 4. Hypokalemia. 5. Hard of hearing. HOSPITAL COURSE: The patient is a 76-year-old white male with history of severe chronic obstructive pulmonary disease with 1-week history of increasing dyspnea on exertion and coughing up green sputum and denied any fever. He quit smoking in March 2016. A recent outpatient CAT scan of the chest showed that he had emphysema. He did have pulmonary function test done as an outpatient, which showed severe emphysema. The patient was admitted to the hospital and was started on IV Solu-Medrol, Levaquin and also Pulmicort and ipratropium nebulized treatments as he did not like albuterol. He slowly improved. He used some saltwater nasal spray every hour as needed and also Robitussin-DM also which he liked. He slowly improved. It was told that he had end-stage chronic obstructive pulmonary disease and he was given the option of outpatient physical rehabilitation and care home facility or home health and he chose the home health. He did not require any oxygen. He did have a blood gas done after admission which showed a pH 7.48, pCO2 of and pO2 of 72 on room air. Chest x-ray showed no acute abnormality, but did show an evidence of emphysema. He was seen by Dr. Ahuja in consultation for Pulmonary. He will be dismissed to home with home health and home physical therapy and Tylenol 650 mg every 6 hours p.r.n.; budesonide nebulizer treatment 0.5 mg b.i.d.; ipratropium 0.5 mg nebulized treatments q.i.d.; Robitussin-DM 10 mL q.i.d. p.r.n.; Levaquin 500 mg every day for 1 more day; prednisone taper 40 mg daily for 2 days, 30 mg daily for 2 days, 20 mg daily for 2 days, 10 mg daily for 2 days and will stop the albuterol. Make an appointment to see Dr. Santo in the office next week. Also be dismissed on Singulair 10 mg at bedtime. JULIETTE R. ZACHARY, MD DR: [id number] JOB#: [id number] / [id number]
[2016-11-21 11:00] VITALS: BP 126/75
--- NOTE | 2016-11-21 12:30 | PDOC ---
PULMONARY PROGRESS NOTES Subjective PT FEELS BETTER LESS SOA READY FOR D/C Vitals Vital Signs Date Time Temp Pulse Resp B/P (MAP) Pulse Ox O2 Delivery O2 Flow Rate FiO2 11/21/16 11:33 Room Air 11/21/16 11:00 97.6 105 22 126/75 (92) 94 97.6 ROS: No Nausea, No Chest Pain, No Abdominal Pain, No Increase Cough General: Alert HEENT: Other (nc at perrl nose inflamed mucosa. throat clear) Lungs: Other (deminished) Cardiovascular: S1, S2 Abdomen: Soft, Non-tender Neuro Exam: Alert Extremities: No Edema Skin: Warm Medications Active Scripts Medications Dose Route/Sig Max Daily Dose Days Date Category Albuterol Sulfate Neb Soln (Albuterol Sulfate) 2.5 Mg/3 Ml Vial.neb 1 Vial NEB PRN QID PRN 11/15/16 Reported Ipratropium [place] 0.2 Mg/1 Ml Solution 1 Vial NEB PRN QID PRN 11/15/16 Reported Mucinex (Guaifenesin) 600 Mg Tablet.er 1 Tab PO BID 11/15/16 Reported Proair Hfa Inhaler (Albuterol Sulfate) 8.5 Gm Hfa.aer.ad 1 Puff INH PRN Q6HRS PRN 08/15/16 Rx Impression . IMPRESSION: 1. Progressive dyspnea 2. Acute exacerbation of chronic obstructive pulmonary disease. 3. Acute bronchitis. 4. Hypertension. 5. Ex-smoker. 6. Gastroesophageal reflux disease. 7. Allergic rhinitis. Plan . D/W DR SHARMA YESTERDAY D/C PALLIATIVE CARE PT TO D/C HOME FOLLOW UP IN OFFICE 1. Titrate FiO2 to keep O2 saturation 92%. 2. Atrovent only q.i.d. p.r.n. shortness of breath, didnt like duoneb 3. Pulmicort b.i.d. 4. change Solu-Medrol to 40 q 8hrs 5. Continue Levaquin. 6. Lovenox for DVT prophylaxis. 7. Protonix for gastroesophageal reflux disease. 8. Singulair. doesn't want FlonaseVEENA SABATO MD Nov 21, 2016 12:30
[2016-11-22] MEDS ORDERED: predniSONE 20 MG TABLET PO SCH (09:00)
== END 2016-11-21 14:20 | disposition home health service (06) | DRG 191 ==
LOC: ER 08:46 → 6 SOUTH 10:22
PROVIDERS: ADMIT Internal Medicine; ATTEND Internal Medicine
DX: J44.0 Chronic obstructive pulmonary disease with (acute) lower respiratory infection (principal); Z68.1 Body mass index [BMI] 19.9 or less, adult; I10 Essential (primary) hypertension; J20.9 Acute bronchitis, unspecified; J44.1 Chronic obstructive pulmonary disease with (acute) exacerbation; R63.6 Underweight; K21.9 Gastro-esophageal reflux disease without esophagitis; E87.6 Hypokalemia; J30.1 Allergic rhinitis due to pollen; G47.00 Insomnia, unspecified; H91.90 Unspecified hearing loss, unspecified ear; Z79.899 Other long term (current) drug therapy; Z87.891 Personal history of nicotine dependence; Z82.5 Family history of asthma and other chronic lower respiratory diseases
CPT/HCPCS: 36415; 36600; 71020; 80048; 80053; 82805; 85007; 85025; 87205; 93005; 94250; 94640; 94760; J1650; J2930; J7620; J7626; J7644; 97110; 97116; 99285-25